=== PATIENT | male | born 1955 ===

== ENCOUNTER 2019-05-02 21:55 | Inpatient (IN) | payer OTHER, SELFPAY ==
--- NOTE | 2019-05-02 22:31 | DI.MRI.S_ITS ---
PROCEDURE: MR STROKE Pre- and post-contrast brain MRI, non-contrast brain MR angiogram, pre- and postcontrast neck MR angiogram INDICATIONS: TIA TECHNIQUE: Brain: Noncontrast axial T1 spin echo, axial T2 fast spin echo, sagittal and axial FLAIR, coronal T2 fast spin echo, axial gradient echo, axial diffusion and ADC through the brain. After the administration of contrast, axial 3D VIBE of the cranial vasculature and brain. Brain MRA: Non-contrast 3-D time of flight MR angiogram, with multiple rqrxszt-qolusionf-aopdyrsfbg (MIP) reformats performed. Neck MRA: Axial and sagittal TruFISP through the neck. Coronal dynamic MR angiogram during administration of contrast in the arterial and venous phases, with 3-dimenstional pjxelyw-fzfjyhhpa-qdzfgoyemx (MIP) reformats constructed from subtraction images. COMPARISON: None. FINDINGS: Image quality: Diagnostic, with note made of motion artifact. BRAIN: CSF spaces: Ventricles are normal in size and shape. Basal cisterns are patent. No extra-axial fluid collections. Brain: There is abnormal increased diffusion weighted signal seen involving the left lateral posterior aspect of the medulla, as on series 26 image 54. There is associated dark signal seen on the ADC map and there is developing T2-weighted signal seen at this site, as on series 22 image 5. No intracranial bleeds or mass effects. San-white matter interface is normal. Brain parenchymal volume loss is seen. Mild chronic small vessel ischemic change is seen. Brainstem appears normal. Normal intravascular flow voids are present. No abnormal intracranial enhancement. Skull and face: Calvarial marrow signal is normal. Orbits appear normal. Sinuses: Mild to moderate mucosal thickening is seen within the left maxillary sinus. Sinuses and mastoids are relatively clear. BRAIN MR ANGIOGRAM: Anterior circulation: Intracranial internal carotid arteries are normal in size and enhancement. There is a hypoplastic right A1 segment, with a corresponding robust left A1 segment. This is considered to be a normal developmental variant of the [place], of typically no clinical consequence. The flow within the paired anterior cerebral arteries is otherwise normal and symmetric. The flow within the middle cerebral arteries is normal and symmetric. The anterior communicating artery is seen. No stenoses, occlusions, or aneurysms. Posterior circulation: The visualized portions of the vertebral arteries demonstrate normal caliber, and join to form a normal appearing basilar artery. The flow within the posterior cerebral arteries is normal and symmetric. No stenoses, occlusions, or aneurysms. NECK MR ANGIOGRAM: Carotids: Great vessels demonstrate a conventional anatomy as they arise from the aortic arch. The origins of the common carotid arteries appear patent. The calibers and courses of both common carotid arteries are normal. The bifurcation regions appear normal bilaterally. The internal carotid arteries demonstrate normal course and caliber. Posterior circulation: The origins of the vertebral arteries appear patent. The left vertebral artery is dominant to the right. Both proximal vertebral arteries are tortuous, right more prominent than left. Miscellaneous: Subclavian arteries appear patent. Pre-contrast images through the neck show no soft tissue abnormalities. IMPRESSION: BRAIN MRI: Focal subacute infarction involving the left posterolateral medulla. No masses or abnormal enhancement can be seen. Mild brain parenchymal volume loss and chronic small vessel ischemic change can be seen. BRAIN MR ANGIOGRAM: No significant intracranial arterial abnormality is seen. Incidental note is made of a cap[place] band [place] developmental anomaly, with a hypoplastic right A1 segment. NECK MR ANGIOGRAM: Within the arteries of the neck, no hemodynamically significant stenosis can be seen. Dictated by: Daniel Pearce M.D. on 05/03/2019 at 11:07 Approved by: Daniel Pearce M.D. on 05/03/2019 at 11:14
[2019-05-02 23:44] VITALS: BP 176/88; PULSE 67; RESP 16; TEMP 36.1; O2SAT 96; BMI 31.6
[2019-05-03] VITALS (8 sets, daily range): BP systolic 150–180; BP diastolic 72–88; PULSE 64–75; RESP 16–18; TEMP 35.8–37.1; O2SAT 93–97
[2019-05-03] MEDS: ONDANSETRON 4 MG/2 ML INJ IV ×2 (00:13→08:34)
--- NOTE | 2019-05-03 01:08 | P.HP_ITS ---
History of Present Illness History of Present Illness Date Patient Seen: 05/03/19 Time Patient Seen: 00:30 Date of Onset of Symptoms: 05/02/19 Chief complaint: TIA Narrative: Mr. 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 with sudden onset headache and ataxia. The patient states his symptoms began abruptly at 7:30 p.m. and probably presented to the emergency department. Patient describes having an occipital headache and difficulty walking and bumping into things and loss of coordination, numbness and tingling in the left face and hand. Patient has had associated symptoms of nausea and vomiting but denies visual changes. He has no personal history of cardiovascular cerebrovascular disease however his father in his 60s from OR in his mother in her 80s from a stroke. Patient states he used to take aspirin 81 mg daily but none currently. The patient endorses that he does not regularly check his blood sugars and reports his most recent A1c was greater than 9. He has had a chronic diabetic ulcer on his right foot and has had toe amputated. He reports no other recent illness and has had no fevers or chills. Denies complaints of nasal congestion or sore throat. He has had no chest pain or palpitations or racing heartbeat. He denies shortness of breath cough or wheezing. He has had no abdominal pain and no nausea vomiting prior to tonight's episodes. He reports no changes in bowel bladder habits with his last bowel movement being yesterday. He reports nocturia 1-2 times nightly. At [facility] the patient was afebrile on arrival with a temperature 36.7? C heart rate of 95, hypertensive at 203/90 respirations of 14 saturating 97% on room air. A CT of the head is reported as unremarkable and a CT angiography shows a 30% occlusion of the right ICA and an abrupt termination of the left PICA. On laboratory analysis the patient has a white count of 10.0, hemoglobin of 18.9 and hematocrit of 52.1 with platelets of 281. His electrolytes are within normal limits and has a BUN of 16 and creatinine 1.1. His nonfasting glucose is 348. His liver functions are within normal range as lipase of 55 and albumin of 4.6. He has a PT of 11.1 and an INR of 1.0 on urinalysis he has glucosuria with no infection. In the ER the at [facility] patient received labetalol 20 mg IV for hypertension, aspirin 324 mg and Zofran [address] Wei the [facility] ER provider reports the patient's symptoms have resolved with no headache or ataxia and scores the patient had an NIH score of 0. He had contacted [facility] in neurology and spoke with Dr. Parker who recommended no acute interventions and follow complete stroke workup. The patient is transferred to [facility] as would be health does not currently have MRI services and will not for the next 5 days. Transfer is requested and accepted to the medicine service for further workup and evaluation for TIA. Patient History Medical History (Updated 05/03/19 @ 01:34 by ZENY Galvan) Diabetic neuropathy (Chronic) Diabetic ulcer of right foot (Chronic) Hypertension (Acute) Hypothyroidism (Acute) Surgical History (Updated 05/03/19 @ 01:34 by ZENY Galvan) History of amputation of toe (Acute) History of knee surgery (Acute) Family & Social History Family History (Updated 05/03/19 @ 01:35 by ZENY Galvan) Father Cardiovascular disease Mother Stroke Brother Diabetes mellitus Social History: household members children Prior Living Arrangements House Safety & Behavioral: Feels Safe in Current Yes Environment Been Physically Hurt or No Threatened By a Person Suicidal Ideation Description None Tobacco & Substance use: Smoking Status Smoker, status unknown alcohol intake never Comment: The patient is for 11 years and lives in a single family home with his adult children in [place]. He has a family history of his father having OR in his mother having stroke and a brother with diabetes. He has 4 children whom he describes as in good health. He endorses no family history of cancer. 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 Substance use: Patient denies use of recreational pharmaceuticals, herbal or cannabis products. Advanced directives: The patient has no formal advanced directive but in direct discussion states his wishes to be FULL CODE. He designates his eldest son Ignacio to be his surrogate decision maker. Meds Home Medications and Allergies Home Medications Medication Instructions Recorded Confirmed Type insulin glargine [Basaglar KwikPen 62 unit SUBCUT DAILY 05/03/19 05/03/19 History U-100 Insulin] insulin lispro [Humalog KwikPen See Rx Instructions .ROUTE .COMPLEX 05/03/19 05/03/19 History Insulin] levothyroxine 75 mcg PO DAILY 05/03/19 05/03/19 History sitagliptin-metformin [Janumet] 1 tab PO BID 05/03/19 05/03/19 History Allergies Allergy/AdvReac Type Severity Reaction Status Date / Time No Known Drug Allergies Allergy Verified 05/03/19 01:04 Review of Systems Review of Systems ROS: Yes All systems reviewed with the patient and are negative except as otherwise documented Exam Vital Signs (past 8 hours): - 05/02/19 23:44 Temperature 97.0 F L Pulse Rate 67 Respiratory Rate 16 Blood Pressure 176/88 H Pulse Oximetry 96 Oxygen Flow Rate 0 Narrative Exam Narrative: GENERAL APPEARANCE: well developed, right handed overweight male ill-appearing and nauseated. HEENT: Symmetrical facies, slight anisocoria R>L, scleras anicteric and conjunctiva clear, EOMs intact with bilateral nystagmus, no sinus tenderness to percussion, no rhinorrhea, mucous membranes are moist and pink without lesions or exudate. NECK/THYROID: neck supple, no JVD, no carotid bruit, no thyromegaly, trachea midline. LYMPH NODES: no cervical or supraclavicular lymphadenopathy. SKIN: [place], warm and dry, ulceration right foot dressed with bandage. HEART: regular rate and rhythm, S1-S2, no murmur, no rubs or gallops, brisk c apillary refill, no edema LUNGS: clear to auscultation bilaterally, no coarseness crackles or wheezing, no cough present CHEST: Symmetrical movement, no accessory muscle use, good tidal volume. ABDOMEN: Soft, dull to percussion, no abdominal tenderness, no guarding or peritoneal signs, no organomegaly, no flank or suprapubic tenderness, active bowel tones. BACK: Normal curvature, nontender to palpation, no CVA tenderness on percussion EXTREMITIES: moves all extremities, strength is 5/5 and symmetrical, no deformities or joint effusions. NEUROLOGIC: AAO x4, nausea with movement, NIH score is 4, diminished sensation left face left arm and left leg, bilateral lower extremity neuropathy, hearing is assessed as normal bilateral PSYCH: Alert and responsive, anxious appearing, short responses to questions, cooperative with stable behavior. Assessment & Plan Assessment & Plan narrative: This is a 64-year-old right-handed male patient who is transferred to [facility] from [facility] for further evaluation of TIA with the sending facility without MRI capability. Per report from the sending provider patient had an NIH score of 0. Upon arrival transfer documentation is reviewed and the patient has undergone CTA and has abrupt termination of the left PICA and presents Upon arrival and NIH score is 5. We contacted [facility] in spoke with Dr. Parker from Dr. Wei had previously communicated with. Dr. Parker confirmed no intervention is available and recommended proceeding with standard workup as previously described. 1. Acute cerebellar CVA, occluded left PICA, present on admission, active. -patient with abrupt onset of headache with ataxia at 7:30 p.m.. Patient with associated symptoms of numbness and tingling to the left face left arm and left leg, ataxia with impaired movement left hand and nausea and vomiting. Headache has resolved and no complaints of neck pain. -head CT is unremarkable however CTA identifies abrupt termination of the left PICA. -ordered ondansetron 4 mg every 6 hours as needed without relief of nausea. Ordered prochlorpromazine 10 mg IV every 6 hours as needed for nausea. -ordered labetalol 10 mg IV as needed 1st SBP greater than 220 or DBP greater than 120 allowing for permissive hypertension. -aspirin 81 mg daily. -ordered lipid panel, atorvastatin 40 mg daily. -MRI stroke protocol in the morning. -echocardiogram in the morning. -PT, OT and speech therapy to consult of evaluate and treat. 2. Essential hypertension, chronic, active -patient carries a history of hypertension but is on no current medications. -patient is hypertensive and received labetalol [address] [facility]. Blood pressure on arrival to [facility] is 176/88. -ordered labetalol 10 mg IV as needed 1st SBP greater than 220 or DBP greater than 120 allowing for permissive hypertension. 3. Diabetes type 2, insulin dependent, uncontrolled with neuropathy, present on admission, active. -patient admits to poorly controlled diabetes, not checking blood sugars regularly and reports bilateral lower extremity neuropathy with last A1c greater than 9. -blood sugar on admission labs at [facility] was 348, fingerstick blood sugar on arrival to [facility] is 295. -Accu-Cheks every 6 hours while NPO then will be AC and HS. -patient typically takes Basaglar 62 units daily. Ordered Lantus 35 mg twice daily. -patient reports using parental insulin 25-35 units with meals. Patient will be presently NPO pending speech evaluation. -ordered correctional insulin medium scale every 6 hours. -patient routinely takes Basaglar 62 units daily. 4. Acquired Hypothyroidism, chronic, stable. -continue patient's home regimen of levothyroxine 75 mcg daily. -will check TSH with reflex to T4. VTE prophylaxis: SCDs and Lovenox IV fluid: Normal saline 100 cc/hour. Diet: NPO pending speech therapy evaluation. Code status: FULL CODE The patient is admitted to the hospital for further evaluation workup for cerebellar stroke. The patient is admitted as observation status with expected length of stay to be less than 2 midnights. Scores GCS [place] coma scale eye opening: Spontaneous [place] coma scale verbal response: Orientated [place] coma scale motor response: [place]bey commands [place] coma scale total score: 15 NIHSS Level of Conciousness: Alert, keenly responsive Ask month/age: Answers both questions correctly. Open/close eyes, close hand: Performs both tasks correctly Best gaze horizontal: Normal Visual lowe: No visual loss Facial palsy: Minor paralysis, flattened nasolabial fold, asymmetry on smiling Left arm drift: No drift for full 10 sec Right arm drift: No drift for full 10 sec Left leg drift: No drift for full 5 sec Right leg drift: No drift for full 5 sec Limb ataxia: Present in one limb Sensory on face/arms/legs: Mild to moderate sensory loss, can tell touch Best language: No aphasia, normal Dysarthria: Mild to mod,some slurring Extinction or inattention: Visual, tactile, auditory, spacial or personal inattention to stimuli Total NIH Stroke scale score: 5 Quality VTE Deep Vein Thrombosis/Pulmonary Embolism Present on Admission: No
[2019-05-03] MEDS: PROCHLORPERAZINE 10 MG/2 ML VIAL IV ×2 (01:57→10:06)
[2019-05-03] MEDS: INSULIN ASPART 100 UNIT/ML INSULN PEN SUBCUT ×4 (02:00→17:50)
[2019-05-03] MEDS: SODIUM CHLORIDE 0.9% 1,000 ML 100 ML IV (03:14)
[2019-05-03] MEDS: PANTOPRAZOLE 40 MG VIAL IV ×2 (03:16→09:19)
[2019-05-03 05:57] LABS: Alanine Aminotransferase 18 IU/L (<50); Albumin 4.3 g/dL (3.5-5.0); Albumin Globulin Ratio 1.4 (1.0-2.8); Alkaline Phosphatase 91 U/L (38-126); Aspartate Aminotransferase 20 IU/L (17-59); BUN Creatinine Ratio 15.3 (6-22); Bilirubin Total 0.7 mg/dL (0.2-1.3); Blood Urea Nitrogen 15 mg/dL (9-20); Calcium 9.2 mg/dL (8.4-10.2); Carbon Dioxide 27 mmol/L (22-32); Chloride 101 mmol/L (98-107); Estimated Glomerular Filt Rate > 60.0 mL/min (>60); Glucose 330 mg/dL (80-110); HEMOLYSIS < 15 (0-50); Potassium 4.4 mmol/L (3.4-5.1); Sodium 136 mmol/L (137-145); Total Protein 7.3 g/dL (6.3-8.2)
[2019-05-03 05:59] LABS: Hemoglobin A1C% w Est Avg Glu 9.7 % (4.0-6.0)
[2019-05-03 06:01] LABS: Add Manual Diff / Slide Review NO; Basophils Absolute Auto 0 /uL (0-100); Basophils Percent Auto 0.2 % (0-2); Eosinophils Absolute Auto 0 /uL (0-450); Eosinophils Percent Auto 0.1 % (2-4); Hematocrit 50.7 % (41-53); Hemoglobin 17.5 g/dL (13.5-17.5); Lymphocytes Absolute Auto 1300 /uL (1100-4500); Mean Corpuscular HGB Conc 34.5 % (30-36); Mean Corpuscular Hemoglobin 29.6 PG (26-34); Mean Corpuscular Volume 85.6 fL (80-100); Monocytes Absolute Auto 700 /uL (0-900); Monocytes Percent Auto 5.4 % (3-14); Neutrophils Absolute Auto 10100 /uL (1500-7000); Neutrophils Percent Auto 83.3 % (50-75); Platelet Count 261 X10^3/uL (150-400); Red Blood Cell Count 5.92 X10^6/uL (4.5-5.9); Red Cell Distribution Width 14.2 % (11.6-14.8); White Blood Cell Count 12.1 X10^3/uL (4.5-11.0)
[2019-05-03 06:22] LABS: Cholesterol 175 mg/dL (140-199); HDL Cholesterol 40 mg/dL (40-60); LDL Cholesterol Calculated 117 mg/dL (<100); Triglycerides 92 mg/dL (35-150)
[2019-05-03 07:08] LABS: Magnesium 1.7 mg/dL (1.6-2.3)
--- NOTE | 2019-05-03 08:58 | CM.DANOTE ---
Addendum entered by Mendy Montoya R.N. 05/03/19 10:09: Discussed patient during rounds. He was sleeping. When MRI is complete, will be sent over to neurologist at [facility]. Patient is having balance issues and nausea. Will continue to follow closely. Original Note: DCP: Case reviewed, EMR reviewed. Was unable to interview patient, as he was having emesis, but reviewed chart and recent ER note. DCP assessment completed with information currently available. Patient is a 64 year old male who admitted yesterday evening to the care of the hospitalist team. PCP: Dr. Danielson. Payer: Hitesh WOLF. Patient came to the hospital after initial evaluation at [facility]. They did not have MRI capabilities, so he was sent here. Patient had been seen for occipital headaches, weakness, and unsteadines. Patient was evaluated for CVA. Patient has history of diabetes type 2, and poorly controlled. He also had an amputated toe According to notes, patient lives with his 4 children, and has a son, Ignacio Hall, who is the decision maker. 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 Patient is here for possible CVA' and will be having an MRI. MD at [facility] is also involved, and will be looking at MRI. It is uncertain if patient will be transferred out to higher level facility. Patient does have P.T/O.T. orders. P: DCP to follow and be available for any resources needed. If he does not get transferred out, he may be eligable for inpatient rehab at a higher level, such as [facility]. Will see how he does here at the hospital, and when he is stable enough to work with P.T. Mendy Montoya RN/Councilor
[2019-05-03] MEDS: ASPIRIN EC 81 MG TABLET PO (09:19)
[2019-05-03] MEDS: INSULIN GLARGINE 100 UNIT/ML 3ML PEN 20 UNIT SUBCUT (10:06)
--- NOTE | 2019-05-03 11:30 | PT-IP ANOTE ---
900am: checked on pt this morning and nurse stated that pt is not ready for PT this morning with c/o nausea and (+) emesis. nurse if going to give pt medication and PT to check back. Checked on pt again at 1125am. pt. just came back from MRI and speech has to see pt first and pt is going for an echo afterwards. will check again in pm.
--- NOTE | 2019-05-03 11:35 | DI.ECHO.S_ITS ---
Echocardiogram Report + + :Name: NICKI VALDEZ Study Date: 05/03/2019 Height: 72 in : :[facility] Weight: 233 lb : : Gender: Male BSA: 2.3 m2 : :: 1955 Age: 64 yrs BP: 176/88 mmHg: :Reason For Study: TIA/ HYPERTENSION : :Ordering Physician: [facility] : :Hospitalist Performed By: Mihaela Page : :Referring: AJAY CARRILLO : + + Interpretation Summary The left ventricle is normal in size, wall thickness, and systolic function without any focal wall motion abnormalities. The ejection fraction is estimated to be 60-65%. Diastolic parameters suggest a relaxation abnormality of the left ventricle, consistent with probable normal filling pressures. The right ventricle is normal in size and function. Pulmonary artery pressures cannot be estimated because of the lack of a measurable TR jet velocity. The left atrium is severely dilated. The right atrium is mildly dilated. There was a small amount of bubbles after 10 cardiac cycles that appear in the left atrium. This would suggest an extracardiac shunt such as a pulmonary AV malformation. Consider a CT chest with IV contrast to further investigate. There is discrete nodular thickening of the right coronary cusp. There is mild to moderate aortic regurgitation. There is no other significant valvular heart disease. The aortic root is mildly dilated. The ascending aorta is mild-moderately enlarged. Procedure: A two-dimensional transthoracic echocardiogram with color flow and Doppler was performed. The study quality was technically adequate. There is no prior echocardiogram noted for this patient. A saline contrast injection was performed to assess for cardiac shunting. The heart rate ranged between 63-82 bpm during the study. The patient had frequent PVCs during the exam. Left Ventricle: The left ventricle is normal in size, wall thickness, and systolic function without any focal wall motion abnormalities. The ejection fraction is estimated to be 60-65%. Diastolic parameters suggest a relaxation abnormality of the left ventricle, consistent with probable normal filling pressures. Right Ventricle: The right ventricle is normal in size and function. Atria: The left atrium is severely dilated. The right atrium is mildly dilated. There was a small amount of bubbles after 10 cardiac cycles that appear in the left atrium. This would suggest an extracardiac shunt such as a pulmonary AV malformation. Consider a CT chest with IV contrast to further investigate. Mitral Valve: The mitral valve is normal in structure and function. There is no mitral regurgitation noted. Aortic Valve: The aortic valve is trileaflet. There is discrete nodular thickening of the right coronary cusp. The aortic valve opens well. There is mild to moderate aortic regurgitation. Tricuspid Valve: The tricuspid valve is normal in structure and function. There is a trace or physiologic amount of tricuspid regurgitation. Pulmonary artery pressures cannot be estimated because of the lack of a measurable TR jet velocity. Pulmonic Valve: The pulmonic valve is not well seen, but is grossly normal. There is a trace or physiologic amount of pulmonic regurgitation. There is no other significant valvular heart disease. Great Vessels: The aortic root is mildly dilated. The ascending aorta is mild-moderately enlarged. The pulmonary artery is normal size. The IVC is of normal diameter and collapses less than 50% with a sniff. This suggests a right atrial pressure of 8 mm Hg. Pericardium/ Pleura There is no pericardial effusion. Can not rule out possible left sided pleural effusion. MMode/2D Measurements & Calculations LVIDd: 5.7 cm Ao root diam: 4.4 cm LVIDs: 3.8 cm asc Aorta Diam: 4.3 cm FS: 33.3 % EPSS: 0.18 cm IVSd: 0.96 cm LVPWd: 0.68 cm LV brown. diameter/BSA (cm/m^2): 2.5 LV sys. diameter/BSA (cm/m^2): 1.7 LA A2 area: 30.4 cm2 RA long axis: 6.4 cm LA A4 area: 26.3 cm2 RA area: 24.3 cm2 LA length (vol): 6.1 cm RA vol: 78.5 ml LA vol: 110.9 ml RA : 34.6 ml/m2 LA vol index: 48.8 ml/m2 IVC diam: 2.0 cm RVD1 (basal): 4.7 cm RVD2 (mid): 3.8 cm Doppler Measurements & Calculations Ao V2 max: 201.1 cm/sec LVOT Max Ochoa: 81.8 cm/sec Ao V2 mean: 126.7 cm/sec LV V1 max P.7 mmHg Ao max P.2 mmHg LV V1 VTI: 17.7 cm Ao mean P.6 mmHg sev ratio: 0.40 Ao V2 VTI: 44.3 cm AI P1/2t: 317.5 msec AI dec slope: 411.2 cm/sec2 MV E max ochoa: 68.1 cm/sec PA V2 max: 66.5 cm/sec MV A max ochoa: 78.6 cm/sec PA V2 mean: 45.0 cm/sec MV E/A: 0.87 PA mean P.89 mmHg Med Peak E' Ochoa: 6.0 cm/sec PA Accel Time: 0.08 sec E/E' med: 11.3 Lat Peak E' Ochoa: 7.8 cm/sec E/E' lat: 8.7 E/e' average: 10.0 MV P1/2t: 52.4 msec MV /2t max ochoa: 68.1 cm/sec MVA(2t): 4.2 cm2 _ Reading Physician:02:24 PM
--- NOTE | 2019-05-03 12:12 | ST.IPCSEOM ---
Visit Care Team Role Provider Type Ramesh Danielson MD Family Provider Physician Primary Care Provider Specialty: Family Practice Address: [address], [address], [place], [address] Email: ZENY Galvan Admit Provider Physician Attending Provider Referring Provider Specialty: Internal Medicine Address: [address] [place] [address], [id number] Email: [email or web address] Past Medical History (Last Updated 05/03/19 @ 01:34 by ZENY Galvan) Diabetic neuropathy (Chronic Medical) Diabetic ulcer of right foot (Chronic Medical) Hypertension (Acute Medical) Hypothyroidism (Acute Medical) Speech-Language Pathology 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 Harpreet Panda is a 64-year-old right-handed male with a history significant for poorly controlled diabetes type 2 with neuropathy, hypertension, hypothyroidism and polycythemia who presents to the emergency department at [facility] in [facility] with sudden onset headache and ataxia. The patient states his symptoms began abruptly at 7:30 p.m. and probably presented to the emergency department. Patient describes having an occipital headache and difficulty walking and bumping into things and loss of coordination, numbness and tingling in the left face and hand. Patient has had associated symptoms of nausea and vomiting but denies visual changes. He has no personal history of cardiovascular cerebrovascular disease however his father in his 60s from [place] in his mother in her 80s from a stroke. Subjective Observations Pt was in his bed in room. He had just returned from MRI. Pt did not want to eat anything. After explaining the reason for the swallow evaluation, he agreed to proceed. Evaluation Liquids Trialed Ice Chips,Thin Solids Trialed Mechanical Soft Administration Type Tea Spoon,Cup Single Sip,Cup Consecutive Sips,Self-Feeding Oral Impairment WFL Oral Strategies Upright at 90 degrees, Controlled Bite/Sip Size Oral Phase Comments OM examination indicated structures to be WFL for form and function. Pt had a partial denture in place for missing lower teeth. ROM and strength lingually WNL, strength and ROM for lips/ cheeks WNL. Pt c/o numbness on the outside of his cheek. He reported no numbness inside his mouth. Pharyngeal Impairment WFL Pharyngeal Strategies Sitting Upright (90 deg),Small Bites and Sips Pharyngeal Phase Comments Hyolaryngeal elevation was adequate per palpation. His swallow response appeared to be prompt. No cough, choke, or wet voicing was observed. Pt was able to feed himself, and safely tolerated consecutive swallows of thin liquids. No oral residue observed following trial of mechanical soft foods. Findings Dysphagia Type No oral/pharyngeal dysphagia observed Impressions Pt's swallow appears to be WFL. The results obtained no not exclude the possibility of silent aspiration. The pt did not appear to demonstrates signs of silent aspiration ( eyes watering, difficulty with breathing, etc). Thin liquids and mechanial soft are recommended with diet advance a pt desires/tolerates. Diet Recommendations Liquids Order Thin Diet Order Mechanical Soft Medication Recommendations As Tolerated Comments Advance diet as indicated Aspiration Precautions Recommended Precautions Upright at 90 Degrees,Small Bites/Sips Treatment Plan Placement Recommendations after Custodial Facility, Discharge Inpatient Rehab Facility,Home with Home Health Therapy Recommendations ST will f/u as indicated if pt condition changes SPEECH INSTRUCTOR Follow Up as indicated Referrals/Other Recommended Referrals Primary Care Physician
--- NOTE | 2019-05-03 12:50 | OT.IP.TRT ---
Occupational Therapy Treatment Note M3 OT- IP Subjective and Pain Start: 05/03/19 12:49 Freq: Status: Active Protocol: Document 05/03/19 12:49 CGR (Rec: 05/03/19 12:50 CGR [id number]) OT- Subjective Occupational Therapy Visit Type Type Administrative Note Notes Attempted to see pt multiple times today. Pt off the floor for MRI, getting ECHO, last attempt pt is actively vomiting and requests to postpone therapy. Will hold and continue to follow.
[2019-05-03] MEDS: METOCLOPRAMIDE 10 MG/2 ML INJ IV (13:00)
--- NOTE | 2019-05-03 13:01 | P.PN_ITS ---
Subjective Subjective Date Patient Seen: 05/03/19 Time Patient Seen: 13:02 Interval history: Patient was seen and evaluated today, agree with the previously documented assessment and plan with updates as noted below. Mr. 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 He was transferred here for MRI evaluation as this was unavailable at [facility]. When patient arrived he had a Stroke Scale of 5. MRI today showed an acute infarct of his left posterior lateral medulla. Exam Vital Signs (past 8 hours): - 05/03/19 05:43 05/03/19 07:35 05/03/19 12:56 Temperature 97.2 F L 96.4 F L 97.7 F Pulse Rate 64 68 75 Respiratory Rate 18 16 18 Blood Pressure 170/85 H 180/78 H 173/80 H Pulse Oximetry 97 94 93 Oxygen Flow Rate 0 Objective Labs Result Diagrams: 05/03/19 05:20 05/03/19 05:20 Labs: Laboratory Results - last 24 hr 05/03/19 05/03/19 05/03/19 05:20 05:20 05:20 WBC 12.1 H RBC 5.92 H Hgb 17.5 Hct 50.7 MCV 85.6 MCH 29.6 MCHC 34.5 RDW 14.2 Plt Count 261 Neut % (Auto) 83.3 H Lymph % (Auto) 11.0 L Mitchell % (Auto) 5.4 Eos % (Auto) 0.1 L Baso % (Auto) 0.2 Neut # (Auto) 72947 H Lymph # (Auto) 1300 Mitchell # (Auto) 700 Eos # (Auto) 0 Baso # (Auto) 0 Sodium 136 L Potassium 4.4 Chloride 101 Carbon Dioxide 27 BUN 15 Creatinine 0.98 Estimated GFR > 60.0 BUN/Creatinine Ratio 15.3 Glucose 330 H Hemoglobin A1c 9.7 H Calcium 9.2 Magnesium Total Bilirubin 0.7 AST 20 ALT 18 Alkaline Phosphatase 91 Total Protein 7.3 Albumin 4.3 Globulin 3.0 Albumin/Globulin Ratio 1.4 Triglycerides 92 Cholesterol 175 LDL Cholesterol, Calc 117 H HDL Cholesterol 40 TSH 05/03/19 05/03/19 05:20 05:20 WBC RBC Hgb Hct MCV MCH MCHC RDW Plt Count Neut % (Auto) Lymph % (Auto) Mitchell % (Auto) Eos % (Auto) Baso % (Auto) Neut # (Auto) Lymph # (Auto) Mitchell # (Auto) Eos # (Auto) Baso # (Auto) Sodium Potassium Chloride Carbon Dioxide BUN Creatinine Estimated GFR BUN/Creatinine Ratio Glucose Hemoglobin A1c Calcium Magnesium 1.7 Total Bilirubin AST ALT Alkaline Phosphatase Total Protein Albumin Globulin Albumin/Globulin Ratio Triglycerides Cholesterol LDL Cholesterol, Calc HDL Cholesterol TSH 1.20 Assessment & Plan Assessment & Plan narrative: This is a 64-year-old right-handed male patient who is transferred to [facility] from [facility] for further evaluation of TIA with the sending facility without MRI capability. Per report from the sending provider patient had an NIH score of 0. Upon arrival transfer documentation is reviewed and the patient has undergone CTA and has abrupt termination of the left PICA and presents Upon arrival and NIH score was 5. [facility] was consulted on arrival and Dr. Parker from Dr. Wei was communicated with. Dr. Parker confirmed no intervention is available and recommended proceeding with standard workup as previously described. 1. Acute CVA, L PICA infarct, present on admission, active. -patient with abrupt onset of headache with ataxia at 7:30 p.m.. Patient with associated symptoms of numbness and tingling to the left face left arm and left leg, ataxia with impaired movement left hand and nausea and vomiting. Headache has resolved and no complaints of neck pain. -head CT is unremarkable however CTA identifies abrupt termination of the left PICA. 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 Symptoms consistent with Wallenberg syndrome. -ordered ondansetron 4 mg every 6 hours as needed without relief of nausea. Ordered prochlorpromazine 10 mg IV every 6 hours as needed for nausea, along with zofran and reglan. -ordered labetalol 10 mg IV as needed 1st SBP greater than 220 or DBP greater than 120 allowing for permissive hypertension. -aspirin 81 mg daily. -Lipid panel LDL of 117, HDL 40, TG 92, continue atorvastatin 40 mg daily. -MRI stroke protocol as noted above. -echocardiogram pending -PT, OT and speech therapy evaluate and treat. Cleared by speech therapy today. -will follow up with [facility] after they have had time to receive MRI images, likely no interventions necessary based on MRI result. -patient's predominant symptoms of nausea will be treated as noted above, but can last months. 2. Essential hypertension, chronic, active -patient carries a history of hypertension but is on no current medications. -patient is hypertensive and received labetalol 20 mg at [facility]. Blood pressure on arrival to [facility] is 176/88. -ordered labetalol 10 mg IV as needed 1st SBP greater than 220 or DBP greater than 120 allowing for permissive hypertension. 3. Diabetes type 2, insulin dependent, uncontrolled with neuropathy, present on admission, active. -patient admits to poorly controlled diabetes, not checking blood sugars regularly and reports bilateral lower extremity neuropathy with last A1c greater than 9. Current A1c 9.7%. -blood sugar on admission labs at [facility] was 348, fingerstick blood sugar on arrival to [place] is 295. -Accu-Cheks every 6 hours while NPO then will be AC and HS. -patient typically takes Basaglar 62 units daily. Ordered Lantus 35 mg twice daily. -patient reports using parental insulin 25-35 units with meals. Patient will be presently NPO pending speech evaluation. -ordered correctional insulin medium scale every 6 hours. -patient routinely takes Basaglar 62 units daily. 4. Acquired Hypothyroidism, chronic, stable. -continue patient's home regimen of levothyroxine 75 mcg daily. -TSH unremarkable. VTE prophylaxis: SCDs and Lovenox IV fluid: Normal saline 75 cc/hour. Diet: Passed speech eval, to resume diet at dinner. Code status: FULL CODE The patient is admitted to the hospital for further evaluation workup. Quality VTE Deep Vein Thrombosis/Pulmonary Embolism Present on Admission: No
--- NOTE | 2019-05-03 14:15 | PT.IIE ---
Surgical History (Last Updated 05/03/19 @ 01:34 by ZENY Galvan) History of amputation of toe (Acute) History of knee surgery (Acute) Medical History (Last Updated 05/03/19 @ 01:34 by ZENY Galvan) Diabetic neuropathy (Chronic) Diabetic ulcer of right foot (Chronic) Hypertension (Acute) Hypothyroidism (Acute) Physical Therapy Inpatient Evaluation/Re-Eval M1 PT/OT-IP Prior Functional Status Start: 05/03/19 14:59 Freq: NEEDED Status: Active Protocol: Document 05/03/19 14:15 AB (Rec: 05/03/19 15:23 AB [id number]) Medical Review Prior Functional Status Medical History Reviewed Yes Communication able to make needs known Mobility and Gait pt stated that he was independent with all mobilities and ambulation without AD Social History Household Members children Living Arrangements House Number of Floors (Floors) One Floor Number of Stairs To Enter/Railing? 1 step to enter Home Environment High Toilet,Walk in Shower, Built-In Shower Seat Home Equipment Grab Bars In Shower M2 PT-IP Current Condition Start: 05/03/19 14:59 Freq: NEEDED Status: Active Protocol: Document 05/03/19 14:15 AB (Rec: 05/03/19 15:23 AB [id number]) Physical Therapy Current Condition Current Condition Evaluation Date 05/03/19 Treatment Diagnosis cerebellar CVA; difficulty in walking Onset Date 05/02/2019 Precautions Other Precautions falls M3 PT-IP Subjective Start: 05/03/19 14:59 Freq: NEEDED Status: Active Protocol: Document 05/03/19 14:15 AB (Rec: 05/03/19 15:23 AB [id number]) Subjective Physical Therapy Visit Type Type Initial Evaluation Visit Start Time 14:15 Visit Stop Time 14:38 Total Visit Minutes 23 Number of CONTRACT CLERK Visits 0 Physical Therapy Visit Comments Patient Comments c/o dizziness M4 PT-IP Mobility and Gait Start: 05/03/19 14:59 Freq: NEEDED Status: Active Protocol: Document 05/03/19 14:15 AB (Rec: 05/03/19 15:23 AB [id number]) PT-Bed Mobility Assessment Supine to Sit Supine to Sit Contact Guard Assistance Sit to Supine Sit to Supine Contact Guard Assistance PT-Transfer Assessment Sit to and From Stand Sit to and from Stand Moderate Assistance,Maximum Assistance,1 Person Assistance ,Use of Upper Extremities Comments Mobility Comments pt supne in bed. c/o dizziness. completed supine to sit CGA and cues. pt required min A to maintain sitting balance on EOB with increase lateral trunk leaning and LOB on L side. asked pt if he is aware that he is leaning more to the left and stated a little bit but did not correct position and required mod A to reposition trunk back to midline. pt completed sit to stand mod to max A and max cues. NAC present for safety. pt continues to have increase L sided trunk leaning. instructed to take steps towards HOB and completed max A x 1-2 and max cues. pt unable to correct posture without AD and requires max A and max cues. pt stated that he is starting to be nauseated and requested to sit back and lay back in bed. completed sit to supine CGA and cues. positioned in bed. call light and table placed within reach . Pt continues to have increase L sided trunk and head turning to the L even in supine. educated on repositioning. Gait Assessment Gait Gait Assistance Required: Maximum Assistance,1 Person Assist,2 Person Assist Distance (Feet) 3 Able to Maintain Weight Bearing Status Yes During Gait Assistive Devices Assistive Device Gait Belt,Front Wheeled Walker Orthotic/Prosthetic Devices or Brace: No Gait Deviations General Gait Pattern Antalgic,Decreased Stride Length,Decreased Feet Clearance,Lateral Trunk Lean, Step-to Gait Factors Limiting Gait Function Factors Limiting Gait Function Decreased Activity Tolerance, Incoordination,Poor Balance, Poor Safety Awareness PT-Balance Assessment Sitting Balance and Reactions Static Sitting Balance Ability Poor Dynamic Sitting Balance Ability Poor Standing Balance and Reactions Static Standing Balance Ability Poor Dynamic Standing Balance Ability Poor Device Used FWW M5 PT-IP Objective Assessments Start: 05/03/19 14:59 Freq: NEEDED Status: Active Protocol: Document 05/03/19 14:15 AB (Rec: 05/03/19 15:23 AB [id number]) Orientation Orientation/Cognition Level of Alertness Alert Orientation Name Safety Awareness Decreased Safety Awareness Gross Range of Motion Lower Extremity ROM Assessment Within Functional Limits Strength Lower Extremity Strength Assessment Within Functional Limits M6 PT-IP Treatment Start: 05/03/19 14:59 Freq: NEEDED Status: Active Protocol: Document 05/03/19 14:15 AB (Rec: 05/03/19 15:23 AB [id number]) Physical Therapy Treatment Education Education Provided Safety M7 PT-IP Assessment and Plan Start: 05/03/19 14:59 Freq: NEEDED Status: Active Protocol: Document 05/03/19 14:15 AB (Rec: 05/03/19 15:23 AB [id number]) PT Summary Assessment and Plan Potential Rehabilitation Potential Fair Status of Condition at Evaluation Evolving Summary Impairments Pain,ROM,Strength,Balance, Coordination,Sensation,Tone, Cognition,Bed Mobility, Transfers,Gait,Activity Tolerance Assessment Summary pt with decrease midline orientation and c/o dizziness/ nausea affecting mobility. pt will require acute rehab vs snf rehab to improve functional mobility. Currently, the pt requires 2 person assist with mobility with LOB to the L and max cues . pt is to be seen once a day for PT at this time but will increase frequency when appropriate/when pt can tolerate more activity but at this time unable to tolerate much activity due to c/o nausea with (+) emesis and dizziness . Goals Bed Mobility Goal Standby Assistance Transfer Goal Contact Guard Assistance,Front Wheeled Walker Gait Goal Minimal Assistance,Front Wheel Walker Gait Distance 100 Other Goals up/down 1 step min A Days to Meet Goals 10 Frequency of Treatment Frequency Of Treatment Once a Day Treatment Plan Physical Therapy Treatment Plan Bed Mobility Training,Transfer Training,Gait Training, Therapeutic Exercise,Balance Retraining,Discharge Planning, Neuromuscular Re-ed, Coordination Retraining Recommendations To Nursing Amount of Assist Needed 2 Person Assist Discharge Recommendations PT Discharge Recommendations SNF Rehab,Acute Rehab
--- NOTE | 2019-05-03 15:37 | PC.NURSE ---
Shift Summary: Patient alert and oriented, pleasant, and answers questions appropriately. Reports continuous dizziness and nausea without great relief from nausea medications as ordered prn. patient has episodes of retching and some emesis when moving. MRI completed today, and Dr. Mustafa in to discuss results with patient. Patient was able to work with P.T. Using urinal independently, and able to move in bed himself. Seen by ST and able to advance diet, but patient declines anything other than sips of water at this time due to nausea. Voiding without difficulty. Denies pain. Call light and urinal within reach.
[2019-05-03] MEDS: SODIUM CHLORIDE 0.9% 1,000 ML 75 ML IV (16:16)
--- NOTE | 2019-05-03 18:19 | PC.NURSE ---
wound care 1814 dressing to right foot cleansed with saline and allevyn dressing applied. notified that pt states he's been taking Keflex 4x/day.
[2019-05-03] MEDS: ATORVASTATIN 20 MG TABLET 40 MG PO (21:00)
[2019-05-03] MEDS: INSULIN GLARGINE 100 UNIT/ML 3ML PEN 35 UNIT SUBCUT (21:00)
[2019-05-03] MEDS: cephALEXin 250 MG CAPSULE 500 MG PO (21:02)
[2019-05-04] VITALS (11 sets, daily range): BP systolic 140–172; BP diastolic 64–94; PULSE 63–85; RESP 16–18; TEMP 35.9–37; O2SAT 93–96
[2019-05-04] MEDS: INSULIN ASPART 100 UNIT/ML INSULN PEN SUBCUT ×5 (00:28→20:48)
[2019-05-04 06:02] LABS: Add Manual Diff / Slide Review NO; Basophils Absolute Auto 0 /uL (0-100); Basophils Percent Auto 0.4 % (0-2); Eosinophils Absolute Auto 200 /uL (0-450); Eosinophils Percent Auto 1.2 % (2-4); Hematocrit 47.8 % (41-53); Hemoglobin 16.7 g/dL (13.5-17.5); Lymphocytes Absolute Auto 1800 /uL (1100-4500); Lymphocytes Percent Auto 13.8 % (25-40); Mean Corpuscular HGB Conc 34.9 % (30-36); Mean Corpuscular Hemoglobin 29.8 PG (26-34); Mean Corpuscular Volume 85.3 fL (80-100); Monocytes Absolute Auto 1000 /uL (0-900); Monocytes Percent Auto 7.8 % (3-14); Neutrophils Absolute Auto 10000 /uL (1500-7000); Neutrophils Percent Auto 76.8 % (50-75); Platelet Count 246 X10^3/uL (150-400); Red Blood Cell Count 5.61 X10^6/uL (4.5-5.9); Red Cell Distribution Width 14.2 % (11.6-14.8)
[2019-05-04 06:10] LABS: BUN Creatinine Ratio 15.8 (6-22); Blood Urea Nitrogen 15 mg/dL (9-20); Calcium 8.9 mg/dL (8.4-10.2); Carbon Dioxide 29 mmol/L (22-32); Chloride 103 mmol/L (98-107); Estimated Glomerular Filt Rate > 60.0 mL/min (>60); Glucose 213 mg/dL (80-110); HEMOLYSIS < 15 (0-50); Potassium 4.3 mmol/L (3.4-5.1); Sodium 137 mmol/L (137-145)
[2019-05-04] MEDS: SODIUM CHLORIDE 0.9% 1,000 ML 75 ML IV ×2 (06:23→20:11)
--- NOTE | 2019-05-04 09:02 | CM.DPC ---
Addendum entered by Mendy Montoya R.N. 05/04/19 11:25: Layla from [facility] called back. She was inquiring if patient had worked with O.T/S.T. Let her know that patient has. She asked to have these notes faxed over as well, as well as latest prog note. Faxed over yesterday's prog note, as well as speech and occupational therapy notes as well. Addendum entered by Mendy Montoya R.N. 05/04/19 10:51: Spoke to Layla at [facility] and stated that she will review referral. Since insurance is not opened today, she will call them in the am to work on getting authorization. Original Note: DCP Cont: Met with patient this morning. Noted in P.T. notes that they are recommending skilled rehab, or inpatient rehab. Patient was sitting up in his bed, he is alert and oriented. Discussed fci, patient stated, it's pretty scary with the Page Virus going on. Mentioned higher level rehab, such as [facility], and patient stated, that would be ok. Confirmed that he lives with one of his children at home, and before this incident, he has been independent. P: Will go ahead and send information, P.T. notes, and H&P over to [facility]. Will follow up with a phone call as well. Mendy Montoya RN/Doughnut Maker
[2019-05-04] MEDS: SODIUM CHLORIDE 0.9% FLUSH 10 ML IV (09:49)
[2019-05-04] MEDS: ENOXAPARIN 40 MG/0.4 ML SYRINGE SUBCUT (09:49)
[2019-05-04] MEDS: PANTOPRAZOLE 40 MG VIAL IV (09:49)
[2019-05-04] MEDS: ASPIRIN EC 81 MG TABLET PO (09:49)
[2019-05-04] MEDS: INSULIN GLARGINE 100 UNIT/ML 3ML PEN 35 UNIT SUBCUT (09:50)
[2019-05-04] MEDS: cephALEXin 250 MG CAPSULE 500 MG PO ×4 (10:47→20:48)
--- NOTE | 2019-05-04 11:30 | PT.IPTN ---
Physical Therapy Treatment Note M2 PT-IP Current Condition Start: 05/03/19 14:59 Freq: NEEDED Status: Active Protocol: Document 05/03/19 14:15 AB (Rec: 05/03/19 15:23 AB [id number]) Physical Therapy Current Condition Current Condition Evaluation Date 05/03/19 Treatment Diagnosis cerebellar CVA; difficulty in walking Onset Date 05/02/2019 Precautions Other Precautions falls M3 PT-IP Subjective Start: 05/03/19 14:59 Freq: NEEDED Status: Active Protocol: Document 05/04/19 11:09 AW (Rec: 05/04/19 11:29 AW [id number]) Subjective Physical Therapy Visit Type Type Treatment Note Visit Start Time 10:18 Visit Stop Time 10:45 Total Visit Minutes 27 Number of CLIENT CARE CONSULTANT Visits 0 Physical Therapy Visit Comments Patient Comments Pt feeling better, no emesis today. M4 PT-IP Mobility and Gait Start: 05/03/19 14:59 Freq: NEEDED Status: Active Protocol: Document 05/04/19 11:09 AW (Rec: 05/04/19 11:29 AW [id number]) PT-Bed Mobility Assessment Supine to Sit Supine to Sit Standby Assistance Sit to Supine Sit to Supine Standby Assistance Scooting Scooting to Edge of Bed Standby Assistance Scooting Up and Down in Bed Standby Assistance PT-Transfer Assessment Sit to and From Stand Sit to and from Stand Contact Guard Assistance,1 Person Assistance,Use of Upper Extremities Equipment Transfer Assistive Device Gait Belt,Front Wheeled Walker Transfers Transfer Destination Bed,Chair Transfer Technique pt ambulated with FWW Transfer Ability Level of Assist Minimal Assistance Comments Mobility Comments Pt sitting up in bed upon PT arrival. He completed supine to sit from flat bed SBA. Sitting EOB, pt reported mild dizziness. Supine SBP had been stable 150's-160's/ Sitting EOB, BP was 184/84 HR 76. In sitting, pt leaned toward the left which increased over time . Pt vaguely aware of lateral lean but only briefly able to correct. Pt then completed sit to stand CGA with FWW. In standing pt had immediate LOB to the left which required min A x 1 to recover. With FWW, pt was shifted to his left side. He stood with FWW for support ~3 minutes but was unable to correct his lateral lean. Pt ambulated ~5 feet with FWW mod A x 1. Weight shifting was challenged with decreased foot clearance LLE and mildly ataxic gait. Pt transferred to the chair min A x 1 and cues for eccentric control of descent. Pt requested to return to bed, so stood again with FWW CGA and transferred to the bed where he was repositioned with call light and all needs within reach, bed alarm armed for safety, bilateral calf SCD's donned. Gait Assessment Gait Gait Assistance Required: Moderate Assistance,1 Person Assist Distance (Feet) 5 Able to Maintain Weight Bearing Status Yes During Gait Assistive Devices Assistive Device Gait Belt,Front Wheeled Walker Orthotic/Prosthetic Devices or Brace: No Gait Deviations General Gait Pattern Ataxic,Decreased Stride Length ,Decreased Feet Clearance, Lateral Trunk Lean,Step-to Gait Factors Limiting Gait Function Factors Limiting Gait Function Decreased Activity Tolerance, Incoordination,Poor Balance, Poor Safety Awareness Comments Gait Comments See mobility comments PT-Balance Assessment Sitting Balance and Reactions Static Sitting Balance Ability Poor Dynamic Sitting Balance Ability Poor Standing Balance and Reactions Static Standing Balance Ability Poor Dynamic Standing Balance Ability Poor Device Used FWW M5 PT-IP Objective Assessments Start: 05/03/19 14:59 Freq: NEEDED Status: Active Protocol: Document 05/03/19 14:15 AB (Rec: 05/03/19 15:23 AB [id number]) Orientation Orientation/Cognition Level of Alertness Alert Orientation Name Safety Awareness Decreased Safety Awareness Gross Range of Motion Lower Extremity ROM Assessment Within Functional Limits Strength Lower Extremity Strength Assessment Within Functional Limits M6 PT-IP Treatment Start: 05/03/19 14:59 Freq: NEEDED Status: Active Protocol: Document 05/04/19 11:09 AW (Rec: 05/04/19 11:30 AW [id number]) Physical Therapy Treatment Education Education Provided Safety M7 PT-IP Assessment and Plan Start: 05/03/19 14:59 Freq: NEEDED Status: Active Protocol: Document 05/04/19 11:09 AW (Rec: 05/04/19 11:29 AW [id number]) PT Summary Assessment and Plan Potential Rehabilitation Potential Good Status of Condition at Evaluation Evolving Summary Impairments Pain,ROM,Strength,Balance, Coordination,Sensation,Tone, Cognition,Bed Mobility, Transfers,Gait,Activity Tolerance Progress Towards Goals Slow Progress - Other Assessment Summary Pt continues to demonstrate poor midline orientation. Dizziness affecting mobility this session but nausea and vomiting better controlled. Pt reports left-sided facial numbness/tingling which he did not have before. He was also observed to have resting and gaze-evoked nystagmus. Pt would now benefit from two sessions daily and remains an excellent candidate for acute rehab (preferred) or SNF rehab . Goals Bed Mobility Goal Standby Assistance Transfer Goal Contact Guard Assistance,Front Wheeled Walker Gait Goal Minimal Assistance,Front Wheel Walker Gait Distance 100 Other Goals - up/down 1 step min A Days to Meet Goals 10 Frequency of Treatment Frequency Of Treatment Twice a Day Treatment Plan Physical Therapy Treatment Plan Bed Mobility Training,Transfer Training,Gait Training, Therapeutic Exercise,Balance Retraining,Discharge Planning, Neuromuscular Re-ed, Coordination Retraining Other Recommendations and Next Treatment gaze stabilization exercises, Focus midline orientation, standing tolerance, advance gait as able Recommendations To Nursing Amount of Assist Needed 1 Person Assist Discharge Recommendations PT Discharge Recommendations SNF Rehab,Acute Rehab Other Discharge Recommendations preference for acute rehab
--- NOTE | 2019-05-04 15:01 | PC.NURSE ---
1400 patient noted that he had intermittent double or blurry vision when he turned his head in one direction. Denies any other new symptoms. Denies dizziness at this time. Dr. Mustafa called directly at this time to report occasional episodes of double or blurred vision. No new orders received. Continue to moniotr. Patient denies dizziness, n/v or shortness of breath today. Call light and urinal within reach.
--- NOTE | 2019-05-04 17:21 | PC.NURSE ---
1700 - This FURNISHINGS CONSERVATOR checked on pt. Pt stated, I've been having double vision. When I asked for how long he said it started sometime today. Notified CONRAD Ruano.
--- NOTE | 2019-05-04 17:43 | P.PN_ITS ---
Subjective Subjective Date Patient Seen: 05/04/19 Time Patient Seen: 17:44 Interval history: Mr. 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 MRI showed an acute infarct of his left posterior lateral medulla. Overnight he had no acute events and the patient had improved nausea. He was seen by Physical therapy and recommended for acute rehab. His glucose has remained around 180-210, will increase his Lantus to 40 units from 35 starting tonight. His blood pressure has also been elevated and will start lisinopril. Exam Vital Signs (past 8 hours): - 05/04/19 11:43 05/04/19 12:16 05/04/19 14:00 Temperature 98.5 F 98.0 F 96.7 F L Pulse Rate 69 85 73 Respiratory Rate 18 16 16 Blood Pressure 156/94 H 143/75 H 140/64 Pulse Oximetry 96 93 96 05/04/19 15:50 Temperature 98.3 F Pulse Rate 63 Respiratory Rate 18 Blood Pressure 172/88 H Pulse Oximetry 94 Oxygen Delivery Method Room Air Oxygen Flow Rate 0 Narrative Exam Narrative: GENERAL APPEARANCE: well developed, right handed overweight male leaning to his left side but appears comfortable and in no acute distress. HEENT: Symmetrical facies, slight anisocoria R>L, scleras anicteric and conjunctiva clear, EOMs intact without nystagmus that was previously noted, mucous membranes are moist and pink without lesions or exudate. NECK/THYROID: neck supple, no JVD, no carotid bruit, no thyromegaly, trachea midline. LYMPH NODES: no cervical or supraclavicular lymphadenopathy. SKIN: [place], warm and dry, ulceration right foot dressed with bandage. HEART: regular rate and rhythm, S1-S2, no murmur, no rubs or gallops, brisk cap illary refill, no edema LUNGS: clear to auscultation bilaterally, no coarseness crackles or wheezing, no cough present CHEST: Symmetrical movement, no accessory muscle use, good tidal volume. ABDOMEN: Soft, dull to percussion, no abdominal tenderness, no guarding or peritoneal signs, no organomegaly, no flank or suprapubic tenderness, active bowel tones. BACK: Normal curvature, nontender to palpation, no CVA tenderness on percussion EXTREMITIES: moves all extremities, strength is 5/5 and symmetrical, no deformities or joint effusions. NEUROLOGIC: AAO x4, diminished sensation left face left arm and left leg, bilateral lower extremity neuropathy, hearing is assessed as normal bilateral. Left-sided ataxia is present with slightly improved finger to nose exam compared to yesterday. PSYCH: Alert and responsive, anxious appearing, short responses to questions, cooperative with stable behavior. Objective Labs Result Diagrams: 05/04/19 05:45 05/04/19 05:45 Labs: Laboratory Results - last 24 hr 05/04/19 05/04/19 05:45 05:45 WBC 13.0 H RBC 5.61 Hgb 16.7 Hct 47.8 MCV 85.3 MCH 29.8 MCHC 34.9 RDW 14.2 Plt Count 246 Neut % (Auto) 76.8 H Lymph % (Auto) 13.8 L [place] % (Auto) 7.8 Eos % (Auto) 1.2 L Baso % (Auto) 0.4 Neut # (Auto) 56939 H Lymph # (Auto) 1800 [place] # (Auto) 1000 H Eos # (Auto) 200 Baso # (Auto) 0 Sodium 137 Potassium 4.3 Chloride 103 Carbon Dioxide 29 BUN 15 Creatinine 0.95 Estimated GFR > 60.0 BUN/Creatinine Ratio 15.8 Glucose 213 H D Calcium 8.9 Assessment & Plan Assessment & Plan narrative: This is a 64-year-old right-handed male patient who is transferred to [facility] from [facility] for further evaluation of TIA with the sending facility without MRI capability. Per report from the sending provider patient had an NIH score of 0. Upon arrival transfer documentation is reviewed and the patient has undergone CTA and has abrupt termination of the left PICA and presents Upon arrival and NIH score was 5. [facility] was consulted on arrival and Dr. Parker from Dr. Wei was communicated with. Dr. Parker confirmed no intervention is available and recommended proceeding with standard workup as previously described. 1. Acute CVA, L PICA infarct, present on admission, active. -patient with abrupt onset of headache with ataxia at 7:30 p.m the night of admission. Patient with associated symptoms of numbness and tingling to the left face left arm and left leg, ataxia with impaired movement left hand and nausea and vomiting. Headache has resolved and no complaints of neck pain. -head CT is unremarkable however CTA identifies abrupt termination of the left PICA. MRI stroke showed a focal subacute infarction involving the left posterolateral medulla on MR stroke, noted hypoplastic R A1 segment considered an normal anatomical variant. Symptoms consistent with Wallenberg syndrome. -ordered ondansetron 4 mg every 6 hours as needed without relief of nausea. Ord ered prochlorpromazine 10 mg IV every 6 hours as needed for nausea, along with zofran and reglan. -permissive hypertension was allowed, however will start lisinopril therapy given continuing hypertension today. -aspirin 81 mg daily. -Lipid panel LDL of 117, HDL 40, TG 92, continue atorvastatin 40 mg daily. -MRI stroke protocol as noted above. -echocardiogram currently pending cardiology read. -PT, OT and speech therapy evaluate and treat. Cleared by speech therapy. Physical therapy has recommended acute rehab. 2. Essential hypertension, chronic, active -patient carries a history of hypertension but is on no current medications. -patient was hypertensive and received labetalol 20 mg at [facility]. Blood pressure on arrival to [facility] is 176/88. He was treated as permissive hypertension given his acute CVA, however his blood pressure remains elevated today and will start lisinopril therapy with 10 mg daily. Will continue to adjust as necessary. 3. Diabetes type 2, insulin dependent, uncontrolled with neuropathy, present on admission, active. -patient admits to poorly controlled diabetes, not checking blood sugars regularly and reports bilateral lower extremity neuropathy with last A1c greater than 9. Current A1c 9.7%. -blood sugar on admission labs at [facility] was 348, fingerstick blood sugar on arrival to [place] is 295. -continue fingersticks a.c. HS. -patient typically takes Basaglar 62 units daily and Januvia. Ordered Lantus 35 mg twice daily initially which will be increased to 40 mg twice daily starting this evening for persistent sugars in the 180s to 210 range. -ordered correctional insulin medium scale every 6 hours. 4. Acquired Hypothyroidism, chronic, stable. -continue patient's home regimen of levothyroxine 75 mcg daily. -TSH unremarkable. VTE prophylaxis: SCDs and Lovenox IV fluid: Can discontinue Diet: Passed speech eval, now on carb consistent diet mechanical soft diet per speech therapy Code status: FULL CODE Quality VTE Deep Vein Thrombosis/Pulmonary Embolism Present on Admission: No
[2019-05-04] MEDS: lisinopriL 10 MG TABLET PO (17:52)
--- NOTE | 2019-05-04 18:10 | PC.NURSE ---
Addendum entered by Bindu Jensen R.N. 05/04/19 22:41: Assistance by SECURITY GUARD into bathroom as per pt request. SECURITY GUARD reports pt unsteady on feet. Walker use and staff assistance prn. Returned to bed by SECURITY GUARD. Addendum entered by Bindu Jensen R.N. 05/04/19 21:10: No change in neurological status this shift. Continues to c/o intermittent double vision, numbness remains left side of face and intermittent dizziness. Pt does state, I think it's getting better, though. Original Note: Pt in bed able to feed self and perform own ADL's. Admits to occasional double vision, but denies @ this current assessment. States numbness to left face continues, but states does not affect swallow. Very slight drift with LLE otherwise no neurovascular deficits. Pt admits to occasional dizziness with movement, but denies at rest. Denies pain. BL calf scd's in place. Allevyn gentle border dressing to right plantar aspect intact with scant amount shadowy drainage visible. Admits to neuropathy to feet BL and hands BL.
[2019-05-04] MEDS: ATORVASTATIN 20 MG TABLET 40 MG PO (20:47)
[2019-05-04] MEDS: INSULIN GLARGINE 100 UNIT/ML 3ML PEN 40 UNIT SUBCUT (20:49)
[2019-05-05] VITALS (10 sets, daily range): BP systolic 144–169; BP diastolic 68–92; PULSE 55–68; RESP 14–18; TEMP 36.4–37; O2SAT 94–98
--- NOTE | 2019-05-05 04:10 | PC.NURSE ---
Pt is AxOx4, VSS, tolerating room air. No complaints of pain. Denies any nausea or double vision/blurry vision. Slight non-productive cough at times. Pt reports some left sided weakness in arm and leg; good strong grasp and able to move leg in bed. Did not witness pt ambulate. NIH=1 for some mild left sided facial numbness that he reports its resolving No speech deficit noted. NS@75mL/hr Fingerstick = 171 overnight Tele: NSR Neuropathy at baseline to b/l feet due to diabetes. Alleyvn dressing to right foot is intact with some shadow drainage. b/l SCDs on throughout night
[2019-05-05 06:31] LABS: Add Manual Diff / Slide Review NO; Basophils Absolute Auto 100 /uL (0-100); Basophils Percent Auto 0.6 % (0-2); Eosinophils Absolute Auto 400 /uL (0-450); Hematocrit 45.2 % (41-53); Hemoglobin 15.9 g/dL (13.5-17.5); Lymphocytes Absolute Auto 2500 /uL (1100-4500); Lymphocytes Percent Auto 25.3 % (25-40); Mean Corpuscular HGB Conc 35.2 % (30-36); Mean Corpuscular Hemoglobin 29.9 PG (26-34); Monocytes Absolute Auto 1000 /uL (0-900); Monocytes Percent Auto 10.1 % (3-14); Neutrophils Absolute Auto 6000 /uL (1500-7000); Platelet Count 241 X10^3/uL (150-400); Red Blood Cell Count 5.32 X10^6/uL (4.5-5.9); White Blood Cell Count 10.1 X10^3/uL (4.5-11.0)
[2019-05-05 06:54] LABS: BUN Creatinine Ratio 17.4 (6-22); Blood Urea Nitrogen 15 mg/dL (9-20); Calcium 8.6 mg/dL (8.4-10.2); Carbon Dioxide 29 mmol/L (22-32); Chloride 104 mmol/L (98-107); Estimated Glomerular Filt Rate > 60.0 mL/min (>60); Glucose 161 mg/dL (80-110); HEMOLYSIS < 15 (0-50); Potassium 3.9 mmol/L (3.4-5.1); Sodium 135 mmol/L (137-145)
[2019-05-05] MEDS: ENOXAPARIN 40 MG/0.4 ML SYRINGE SUBCUT (08:25)
[2019-05-05] MEDS: PANTOPRAZOLE 40 MG VIAL IV (08:25)
[2019-05-05] MEDS: ASPIRIN EC 81 MG TABLET PO (08:25)
[2019-05-05] MEDS: lisinopriL 10 MG TABLET PO ×2 (08:25→17:21)
[2019-05-05] MEDS: cephALEXin 250 MG CAPSULE 500 MG PO ×4 (08:25→21:16)
[2019-05-05] MEDS: INSULIN GLARGINE 100 UNIT/ML 3ML PEN 40 UNIT SUBCUT ×2 (08:26→21:13)
[2019-05-05] MEDS: INSULIN ASPART 100 UNIT/ML INSULN PEN SUBCUT ×3 (08:26→17:20)
[2019-05-05] MEDS: SODIUM CHLORIDE 0.9% FLUSH 10 ML IV ×2 (08:26→21:16)
--- NOTE | 2019-05-05 09:50 | OT.IP.EVAL ---
Current Diagnoses Cerebral infarction due to unspecified occlusion or stenosis of left cerebellar artery (05/02/19) Past Medical History (Last Updated 05/03/19 @ 01:34 by ZENY Galvan) Diabetic neuropathy (Chronic) Diabetic ulcer of right foot (Chronic) Hypertension (Acute) Hypothyroidism (Acute) Surgical History (Last Updated 05/03/19 @ 01:34 by ZENY Galvan) History of amputation of toe (Acute) History of knee surgery (Acute) Occupational Therapy Inpatient Evaluation/Re-Eval M1 PT/OT-IP Prior Functional Status Start: 05/03/19 14:59 Freq: NEEDED Status: Active Protocol: Document 05/05/19 09:47 [facility] (Rec: 05/05/19 10:22 [facility] [id number]) Medical Review Prior Functional Status Medical History Reviewed Yes Communication able to make needs known Mobility and Gait pt stated that he was independent with all mobilities and ambulation without AD Activities of Daily Living and IADL's Completely independent with all ADl's, IADl's and worked as an primary therapist. Pt does his own medications and bills. Prior Functional Level (Other details) Pt lives with his son who works during the day. Social History Household Members children Living Arrangements House Number of Floors (Floors) One Floor Number of Stairs To Enter/Railing? 1 step to enter Home Environment High Toilet,Walk in Shower, Built-In Shower Seat Home Equipment Grab Bars In Shower M2 OT-IP Current Condition Start: 05/03/19 12:49 Freq: Status: Active Protocol: Document 05/05/19 09:47 [facility] (Rec: 05/05/19 10:22 [facility] [id number]) Occupational Therapy Current Condition Current Condition Evaluation Date 05/05/19 Treatment Diagnosis Cerebellar CVA Diagnosis Onset Date 05/02/19 Weight Bearing Status Weight Bearing Status Weight Bear as Tolerated M3 OT- IP Subjective and Pain Start: 05/03/19 12:49 Freq: Status: Active Protocol: Document 05/05/19 09:47 [facility] (Rec: 05/05/19 10:22 [facility] [id number]) OT- Subjective Occupational Therapy Visit Type Type Initial Evaluation Visit Start Time 09:00 Visit Stop Time 09:50 Total Visit Minutes 50 Occupational Therapy Visit Comments Patient Comments Pt agreeable to get up for OT eval. Patient/Caregiver Goals To go to intensive inpt rehab for his stroke prior to going home. OT Pain Assessment Pain When Pain Assessed At Rest M4 OT- IP ADL's Start: 05/03/19 12:49 Freq: Status: Active Protocol: Document 05/05/19 09:47 [facility] (Rec: 05/05/19 10:22 [facility] [id number]) OT [id number]-Preeigm Comments OT Self-Feeding Comments Pt states able to eat on his own , however needing assist for set-up due to decreased FMS. OT ADL-Grooming General Evaluation Grooming Ability Standby Assistance Areas Needing Assistance Retrieving/Set-up of Grooming Items Comments OT Grooming Comments Assist to get items and increased time to open packages for brush and toothbrush, pt favoring use of right hand to tear open the packages. OT ADL-Oral Care General Eval Oral Care Ability Independent OT ADL-Dressing General Eval Lower Body Dressing Ability Moderate Assistance Comments OT Dressing Comments Pt having trouble to grasp shoe lace with left hand and needing right hand to compensate more when trying to tie his shoes while leaning forwards from the edge of the bed. Pt losing his balance as leaning to the left while trying to tie his shoes and needs NADINE. Pt would require MODA or greater if trying to stand and do brief /pants management needs. OT ADL-Toileting Comments OT Toileting Comments Pt not having to use the toilet at this time. OT ADL-Bathing Comments OT Bathing Comments Not performed. M5 OT- IP IADL's Start: 05/03/19 12:49 Freq: Status: Active Protocol: Document 05/05/19 09:47 [facility] (Rec: 05/05/19 10:22 [facility] [id number]) OT-Instrumental Activities of Daily Living Home Safety Awareness Awareness of Need for Assistance at Home Good Awareness Ability to Problem Solve Emergency Able to Problem Solve Situations Medication Management Medication Management No Deficits Identified Money Management Money Management No Deficits Identified Meal Preparation Meal Preparation Comments At this time pt would require assist due to decreased static and dynamic balance. Fiber Optic Technician Fiber Optic Technician Comments Pt would benefit from assist. Driving Driving Comments See comments below. From a cognitive standpoint appears intact, however from a physical aspect due to his decreased static and dynamic balance and coordination, may not be appropriate to drive yet. M6 OT- IP Functional Cognition Start: 05/03/19 12:49 Freq: Status: Active Protocol: Document 05/05/19 09:47 [facility] (Rec: 05/05/19 10:22 [facility] [id number]) Cognitive Factors Limiting Selfcare Function Cognitive Ability Level of Alertness Alert Patient Orientation Name,Age,Birthday,Month,Date, Year,Day of Week,Place, Situation Attention Span Ability Capable of Focused Attention, Capable of Sustained Attention Ability to Follow Commands Able to Follow Multi-Step Commands Memory Description No Deficits Noted Problem Solving Ability No deficits Noted Executive Function Ability No Deficits Noted Cognitive Comments Cognitive Assessment Comments Pt appears to be at baseline with cognition and does not appear to have any deficits. Pt scored 51 seconds on Colby Making B which implies normal for mental flexibility, visual attention, execution thinking , and speed of processing. OT- Vision and Hearing OT- Hearing Assessment OT- Hearing Assessment WFL OT- Vision Assessment Visual Acuity Glasses All The Time Occular Pursuits WFL Visual Convergence WFL Visual Gonzalez WFL Vision Assessment Comments Pt states prior was seeing double, however not at this time. M7 OT- IP Mobility and Balance Start: 05/03/19 12:49 Freq: Status: Active Protocol: Document 05/05/19 09:47 [facility] (Rec: 05/05/19 10:22 [facility] [id number]) OT- Bed Mobility Assessment Rolling Type of Rolling Roll to Right Level of Assistance Standby Assistance Supine to Sit Supine to Sit Assist Standby Assistance Sit to Supine Sit to Supine Assist Standby Assistance Scooting Scooting to Edge of Bed Contact Guard Assistance OT-Transfer Assessment Sit to and From Stand Sit to and from Stand Minimal Assistance Transfers Transfer Ability Minimal Assistance,Maximum Assistance Technique Transfer Destination Bed,Chair Transfer Technique Stand Step Pivot Devices Transfer Assistive Devices Gait Belt,Front Wheeled Walker Comments Mobility Comments Increased time to get up from supine to sit and tends to lean to the left. Sit to stand to FWW NADINE and NADINE for balance as at times leans to the left. Without the FWW, transfer from to chair to bed MAX A . NADINE to stand and then MODA/MAX A to take a step to the bed as very unsteady with his balance and leaning to the left. OT- Balance Assessment Sitting Balance and Reactions Static Sitting Balance Ability Fair Dynamic Sitting Balance Ability Poor Standing Balance and Reactions Static Standing Balance Ability Poor Dynamic Standing Balance Ability Poor Comments Other Balance Tests/Deviations/Treatment Pt needing NADINE for balance : while leaning forwards to tie his shoes. heavily relies on the FWW for balance with walking to the sink and also therapist to hold gait belt. During turning to the left pt loss his balance and needing MODA to help regain his balance with FWW. M8 OT- IP Objective Assessments Start: 05/03/19 12:49 Freq: Status: Active Protocol: Document 05/05/19 09:47 [facility] (Rec: 05/05/19 10:22 [facility] [id number]) OT Gross Range of Motion Upper Extremity Range of Motion Assessment Within Functional Limits OT Strength Upper Extremity Strength Assessment Left Impaired Comments Strength Comments RUE 5/5, LUE form 5/5 to 4/5 form proximal to distal. OT- Coordination Assessment Upper Extremity Finger to Nose Test Left UE Impaired Comments Coordination Comments Left hand more involved with right hand. Pt states prior has difficulty for years with right hand at times not able to grasp smaller objects well, Things just slip out. 9 hole peg norms for his age right hand 23.5 seconds, pt scored 38 sec. Left hand 25.5, pt scored 80seconds. Pt having trouble with in hand manipulation and ability to pepper picker smaller coins such as dime/millie. OT-Muscle Tone Assessment Muscle Tone WNL Yes OT Sensation Assessment Comments Summary Comments WFL for light touch. M9 OT- IP Assessment and Plan Start: 05/03/19 12:49 Freq: Status: Active Protocol: Document 05/05/19 09:47 [facility] (Rec: 05/05/19 10:22 [facility] [id number]) OT Summary Assessment and Plan Potential Rehabilitation Potential Excellent Analytic Complexity at Evaluation Low Summary OT Impairments Strength,Balance,Coordination, Functional Mobility,Dressing, Toileting,Bathing,Toilet Transfers,Shower Transfers, Activity Tolerance Progress Towards Goals Progressing Toward Goals Assessment Summary Pt main barrier are decreased balance, coordination, and ability to coordinate UE movement with LE movements. Pt very motivated, pleasant and willing to participate in therapy. Pt has great potential as mainly having decreased balance and coordination needs and appears intact for cognition. 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 Goals Self-Feeding Goal Independent Grooming Goal Independent Dressing Goal Independent Toilet Transfer Goal Independent Shower Transfer Goal Independent Patient/Caregiver Education Goal Caregiver Independent Assisting Patient Frequency of Treatment Frequency Of Treatment Once a Day Treatment Plan OT Treatment Plan ADL Training,Functional Mobility,Patient/Family Education,Discharge Planning Discharge Recommendations OT Discharge Recommendations Acute Rehab Home Equipment Needs Defer to skilled rehab Transportation Needs at Discharge Wheelchair/Cabulance
--- NOTE | 2019-05-05 10:50 | PT.IPTN ---
Current Diagnoses Cerebral infarction due to unspecified occlusion or stenosis of left cerebellar artery (05/02/19) Physical Therapy Treatment Note M2 PT-IP Current Condition Start: 05/03/19 14:59 Freq: NEEDED Status: Active Protocol: Document 05/03/19 14:15 AB (Rec: 05/03/19 15:23 AB [id number]) Physical Therapy Current Condition Current Condition Evaluation Date 05/03/19 Treatment Diagnosis cerebellar CVA; difficulty in walking Onset Date 05/02/2019 Precautions Other Precautions falls M3 PT-IP Subjective Start: 05/03/19 14:59 Freq: NEEDED Status: Active Protocol: Document 05/05/19 10:12 LJ (Rec: 05/05/19 10:50 LJ [id number]) Subjective Physical Therapy Visit Type Type Treatment Note Visit Start Time 10:12 Visit Stop Time 10:24 Total Visit Minutes 12 Notes pt resting in bed. Just finished with OT several minutes ago. Ot states the pt was able to stand at sink SBA and walk in the room Min to CGA. Number of SAND POLISHER Visits 1 Physical Therapy Visit Comments Patient Comments Pt feeling better. No dizziness or nausea M4 PT-IP Mobility and Gait Start: 05/03/19 14:59 Freq: NEEDED Status: Active Protocol: Document 05/05/19 10:12 LJ (Rec: 05/05/19 10:50 LJ [id number]) PT-Bed Mobility Assessment Supine to Sit Supine to Sit Standby Assistance Sit to Supine Sit to Supine Standby Assistance Scooting Scooting to Edge of Bed Standby Assistance Scooting Up and Down in Bed Standby Assistance PT-Transfer Assessment Sit to and From Stand Sit to and from Stand Contact Guard Assistance,1 Person Assistance,Use of Upper Extremities Equipment Transfer Assistive Device Gait Belt,Front Wheeled Walker Transfers Transfer Destination Bed Transfer Technique pt ambulated with FWW Transfer Ability Level of Assist Minimal Assistance Comments Mobility Comments Pt sitting in bed with head of bed elevated. Pt required SBA to move to side of bed into sitting position. Still has left lean in sitting but did not require assistance for balance. Gait Assessment Gait Gait Assistance Required: Moderate Assistance,Maximum Assistance Distance (Feet) 10 Able to Maintain Weight Bearing Status Yes During Gait Assistive Devices Assistive Device Gait Belt,Front Wheeled Walker Orthotic/Prosthetic Devices or Brace: No Gait Deviations General Gait Pattern Ataxic,Decreased Stride Length ,Decreased Feet Clearance, Lateral Trunk Lean,Step-to Gait Factors Limiting Gait Function Factors Limiting Gait Function Decreased Activity Tolerance, Incoordination,Poor Balance, Poor Safety Awareness Comments Gait Comments Pt was mostly MaxA for balance during slow gait clint window seat and back to bed. Experienced multiple LOB every couple of steps during forward walking and turning around requiring MaxA to prevent fall. Pt was unable to weight shift onto right LE but ablt to do so on left LE. He could not move his weight onto his left side. Pt ambulated back to bed at SAND POLISHER request due to unsafe gait. M5 PT-IP Objective Assessments Start: 05/03/19 14:59 Freq: NEEDED Status: Active Protocol: Document 05/03/19 14:15 AB (Rec: 05/03/19 15:23 AB [id number]) Orientation Orientation/Cognition Level of Alertness Alert Orientation Name Safety Awareness Decreased Safety Awareness Gross Range of Motion Lower Extremity ROM Assessment Within Functional Limits Strength Lower Extremity Strength Assessment Within Functional Limits M6 PT-IP Treatment Start: 05/03/19 14:59 Freq: NEEDED Status: Active Protocol: Document 05/05/19 10:12 LJ (Rec: 05/05/19 10:50 LJ [id number]) Physical Therapy Treatment Other Treatments Other Treatment Performed standing weight shifting M7 PT-IP Assessment and Plan Start: 05/03/19 14:59 Freq: NEEDED Status: Active Protocol: Document 05/05/19 10:12 LJ (Rec: 05/05/19 10:50 LJ [id number]) PT Summary Assessment and Plan Potential Rehabilitation Potential Good Status of Condition at Evaluation Evolving Summary Impairments Pain,ROM,Strength,Balance, Coordination,Sensation,Tone, Cognition,Bed Mobility, Transfers,Gait,Activity Tolerance Progress Towards Goals Slow Progress - Other Assessment Summary Pt continues to demonstrate poor midline orientation and unable to self correct for more than a few seconds. Pt's gait this session required ModA to MaxA to prevent falling. OT was in earlier and pt was able to stand at sink and ambulate Marcell to CGA but now is unable to ambulate safely even with MaxA. Nursing shared their observation of his tendency to wax and wane in abilities. Recommending to be prepared for 2 person assist if attempting to ambulate pt. Goals Bed Mobility Goal Standby Assistance Transfer Goal Contact Guard Assistance,Front Wheeled Walker Gait Goal Minimal Assistance,Front Wheel Walker Gait Distance 100 Other Goals - up/down 1 step min A Days to Meet Goals 10 Frequency of Treatment Frequency Of Treatment Twice a Day Treatment Plan Physical Therapy Treatment Plan Bed Mobility Training,Transfer Training,Gait Training, Therapeutic Exercise,Balance Retraining,Discharge Planning, Neuromuscular Re-ed, Coordination Retraining Recommendations To Nursing Amount of Assist Needed 1 Person Assist Discharge Recommendations PT Discharge Recommendations SNF Rehab,Acute Rehab Other Discharge Recommendations preference for acute rehab
--- NOTE | 2019-05-05 14:23 | CM.DPC ---
DCP Inpt Rehab planning: Per MD, pt remains stable and could d/c if placement found. ALL updated OT to please prioritize pt first this morning so OT note could be used towards insurance auth. ALL faxed OT note to Layla at [facility] and she confirms that she sent in request for insurance auth to [facility] and ALL also faxed requested med list. Layla does not anticipate auth today but plans to call [facility] in the morning to get auth for Inpt rehab. ALL updated MD and RN who kindly will update pt due to SW triage needs. Plan: ALL to follow closely in the morning with Layla at [facility] to determine if insurance auth obtained. JUAN ANTONIO Keys
--- NOTE | 2019-05-05 16:54 | PM.PN.1 ---
Subjective Subjective Date Patient Seen: 05/05/19 Interval history: Harpreet Panda is a 64-year-old right-handed male with a past medical history significant for untreated hypertension, poorly controlled diabetes mellitus type 2, insulin using, with complication of neuropathy and hypothyroidism who was transferred and directly admitted from [facility] for further evaluation of possible CVA with MRI capability. The patient is sitting at bedside working with OT. He continues to have ataxia, discoordination and intermittent double vision. He has no other complaints and denies headache, shortness of breath, chest pain, abdominal pain, nausea, vomiting, fever, chills, dysuria, diarrhea or constipation. He is voiding and eliminating without difficulty. He up with assistance and PT/OT. Exam Vital Signs (past 8 hours): - 05/05/19 12:00 05/05/19 15:55 Temperature 97.8 F 98.1 F Pulse Rate 59 L 65 Respiratory Rate 16 18 Blood Pressure 151/75 H 169/92 H Pulse Oximetry 96 96 Oxygen Delivery Method Room Air Oxygen Flow Rate 0 Narrative Exam Narrative: General: Middle aged male sitting at edge of bed and in no acute distress, well-developed, well-nourished, appropriately interactive. HEENT: Normocephalic, atraumatic. External ears without defect. Pupils equal, round, and reactive to light. Anicteric sclerae, moist conjunctivae, and no lid lag. Oropharynx free of erythema and cobble stoning with moist mucosa. Neck: Supple with full range of motion. No jugular venous distension. No bruits. No lymphadenopathy or thyromegaly. Cardiovascular: Regular rate and rhythm without murmurs, rubs, or gallops appreciated. Pulmonary: Clear to auscultation bilaterally without crackles, wheezes, or rhonchi. Normal respiratory effort with no use of accessory muscles. Abdomen: Soft, bowel sounds present, nontender, nondistended. No hepatosplenomegaly or masses appreciated. Extremities: No clubbing, cyanosis, or edema. Skin: Normal temperature, turgor, and texture; no rash, ulcers, or subcutaneous nodules appreciated. Neurological: Cranial nerves grossly intact. Left-sided ataxia and discoordination with finger-nose and [id number]. Patient frequently leans to left side and has subtle weakness of left upper and lower extremity MS +4/5. Psychiatric: Normal mood and affect. Alert and oriented to person, place, and time. Objective Labs Result Diagrams: 05/06/19 06:05 05/06/19 06:05 Labs: Laboratory Results - last 24 hr 05/05/19 05/05/19 06:20 06:20 WBC 10.1 RBC 5.32 Hgb 15.9 Hct 45.2 MCV 85.0 MCH 29.9 MCHC 35.2 RDW 14.0 Plt Count 241 Neut % (Auto) 60.0 Lymph % (Auto) 25.3 [place] % (Auto) 10.1 Eos % (Auto) 4.0 Baso % (Auto) 0.6 Neut # (Auto) 6000 Lymph # (Auto) 2500 [place] # (Auto) 1000 H Eos # (Auto) 400 Baso # (Auto) 100 Sodium 135 L Potassium 3.9 Chloride 104 Carbon Dioxide 29 BUN 15 Creatinine 0.86 Estimated GFR > 60.0 BUN/Creatinine Ratio 17.4 Glucose 161 H Calcium 8.6 Assessment & Plan Assessment & Plan narrative: Harpreet Panda is a 64-year-old right-handed male with a past medical history significant for untreated hypertension, poorly controlled diabetes mellitus type 2, insulin using, with complication of neuropathy and hypothyroidism who was transferred and directly admitted from [facility] for further evaluation of possible CVA with MRI capability. 1. Acute L PICA CVA, present on admission. Active. -Patient with abrupt onset of headache with ataxia at 7:30 p.m on the night of admission. Patient had associated symptoms of numbness and tingling to the left face left arm and left leg, ataxia with impaired movement left hand and nausea and vomiting. Headache has resolved and no complaints of neck pain. -Initial NIH score at [facility] was 0. Upon arrival to [facility] NIH score was 5. [facility] was consulted on arrival Dr. Parker of neurology determined patient not to be an interventional candidate and recommended proceeding with standard workup as previously described. -CT brain did not demonstarte any acute intracranial abnormalities. -CTA demonstrated abrupt termination of the left PICA. -MRI stroke protocol demonstrated a focal subacute infarction involving the left posterolateral medulla. Also noted hypoplastic R A1 segment considered an normal anatomical variant. Symptoms consistent with Wallenberg syndrome. -Ordered ondansetron 4 mg every 6 hours as needed without relief of nausea. Ordered prochlorpromazine 10 mg IV every 6 hours as needed for nausea, along with zofran and reglan. -Allowed for permissive hypertension x 24 hours. Started lisinopril as below for better BP control as below. -Continue to monitor closely on telemetry. Patient has been in sinus rhythm with frequent PVCs. -Risk stratified with hemoglobin A1C elevated at 9.7% and lipid panel which demonstrated: Total cholesterol 175, triglycerides 92, LDL of 117 (goal < 70), HDL 40. -Echocardiogram demonstrated normal EF 60-65%, normal diastolic parameters, normal RV size and function, severely dilated left atrium, mildly dilated right atrium, extracardiac son such as pulmonary AV malformation, discrete nodular thickening of right coronary cusp, [id number] aortic regurgitation, no other significant valvular heart disease, aortic root mildly dilated and ascending aorta mild moderately enlarged. -Continue aspirin 81 mg daily and atorvastatin 40 mg daily at bedtime for stroke prophylaxis. Discussed stroke prophylaxis with [facility] as patient has potential extracardiac shunt and severely dilated left atrium without evidence of atrial fibrillation. [facility] recommended continued cardiac monitoring and if no evidence of atrial fibrillation would recommend event monitor such as ZIO patch to assure patient does not have underlying atrial fibrillation. -Continue physical and occupational therapy and evaluation. Cleared by speech therapy. Currently pursuing inpatient rehabilitation and pending insurance authorization. 2. Hypertension, chronic, present on admission. Stable. -Patient has a history of hypertension but not currently medically treated. -Patient was hypertensive and received labetalol 20 mg IV at [facility]. Blood pressure on arrival to [facility] was 176/88 and allowed for permissive hypertension x 24 hours given his acute CVA. -Started and continue lisinopril increased from 10 mg to 20 mg daily for better BP control. May need to titrate up slowly for better BP control or add another anti-hypertensive. -Continue to monitor BP closely. 3. Diabetes mellitus type 2, insulin-using, uncontrolled with neuropathy, present on admission, active. -Hemoglobin A1c 9.7% indicative of poor glycemic control. Patient admits not checking blood sugars regularly and reports complication of bilateral lower extremity neuropathy. -Continue [facility] blood glucose checks and low dose correctional scale insulin. -Patient home regimen is Basaglar 62 units daily and Januvia 1 tab twice daily. Continue Lantus 40 units twice daily. Blood glucose is improved in . -Continue heart healthy/carbohydrate consistent diet. 4. Hypothyroidism, chronic, present on admission. Stable. -TSH normal at 1.20. -Continue home levothyroxine 75 mcg daily. Code status: FULL CODE VTE prophylaxis: SCDs and Lovenox Disposition: Patient likely to discharge to acute rehabilitation in next 1-2 days and await insurance approval. Quality VTE Deep Vein Thrombosis/Pulmonary Embolism Present on Admission: No
--- NOTE | 2019-05-05 17:30 | PT.IPTN ---
Current Diagnoses Cerebral infarction due to unspecified occlusion or stenosis of left cerebellar artery (05/02/19) Physical Therapy Treatment Note M2 PT-IP Current Condition Start: 05/03/19 14:59 Freq: NEEDED Status: Active Protocol: Document 05/05/19 17:30 LRN (Rec: 05/05/19 18:08 LRN [id number]) Physical Therapy Current Condition Current Condition Evaluation Date 05/03/19 Treatment Diagnosis cerebellar CVA; difficulty in walking Onset Date 05/02/2019 M3 PT-IP Subjective Start: 05/03/19 14:59 Freq: NEEDED Status: Active Protocol: Document 05/05/19 17:30 LRN (Rec: 05/05/19 18:08 LRN [id number]) Subjective Physical Therapy Visit Type Type Treatment Note Visit Start Time 17:30 Visit Stop Time 17:54 Total Visit Minutes 24 Notes Pt resting in bed, just finished dinner. Number of CHILD CARE COORDINATOR Visits 0 Physical Therapy Visit Comments Patient Comments States he is doing much better now than when he had PT in the morning. Able to walk with assist without falling over. M4 PT-IP Mobility and Gait Start: 05/03/19 14:59 Freq: NEEDED Status: Active Protocol: Document 05/05/19 17:30 LRN (Rec: 05/05/19 18:08 LRN [id number]) PT-Bed Mobility Assessment Supine to Sit Supine to Sit Independent Sit to Supine Sit to Supine Independent PT-Transfer Assessment Sit to and From Stand Sit to and from Stand Contact Guard Assistance,1 Person Assistance,Use of Upper Extremities Equipment Transfer Assistive Device Gait Belt,Front Wheeled Walker Transfers Transfer Destination Bed Transfer Technique pt ambulated with FWW Transfer Ability Level of Assist Contact Guard Assistance Comments Mobility Comments Pt had 2 episodes of LOB while ambulating. He had increased sway to the left with weight shifting and with exercise. Pt tends to lean to the left and is forward bent at hips due to feeling of falling backward. Gait Assessment Gait Gait Assistance Required: Minimum Assistance,Moderate Assistance,1 Person Assist Distance (Feet) 20 Able to Maintain Weight Bearing Status Yes During Gait Assistive Devices Assistive Device Gait Belt,Front Wheeled Walker Orthotic/Prosthetic Devices or Brace: No Gait Deviations General Gait Pattern Decreased Stride Length, Decreased Feet Clearance, Flexed Trunk,Lateral Trunk Lean,Step-to Gait Comments Gait Comments Pt tends to have a reduced [place] . See mobility comments. PT-Balance Assessment Sitting Balance and Reactions Static Sitting Balance Ability Good Dynamic Sitting Balance Ability Fair Standing Balance and Reactions Static Standing Balance Ability Fair Dynamic Standing Balance Ability Fair Device Used FWW Comments Other Balance Tests/Deviations/Treatment Pt is able to lift one leg : while holding onto his walker for brief amount of time. He tends to lean to the left. M5 PT-IP Objective Assessments Start: 05/03/19 14:59 Freq: NEEDED Status: Active Protocol: Document 05/05/19 17:30 LRN (Rec: 05/05/19 18:08 LRN [id number]) Gross Range of Motion Upper Extremity ROM Assessment Left Impaired Lower Extremity ROM Assessment Within Functional Limits Strength Upper Extremity Strength Assessment Left Impaired Lower Extremity Strength Assessment Within Functional Limits M6 PT-IP Treatment Start: 05/03/19 14:59 Freq: NEEDED Status: Active Protocol: Document 05/05/19 17:30 LRN (Rec: 05/05/19 18:08 LRN [id number]) Physical Therapy Treatment Other Treatments Other Treatment Performed Sitting manual resisted trunk flex, ext, rotation bilaterally. Standing with FWW/GB for weight shifting and toe/heel ups. M7 PT-IP Assessment and Plan Start: 05/03/19 14:59 Freq: NEEDED Status: Active Protocol: Document 05/05/19 17:30 LRN (Rec: 05/05/19 18:08 LRN [id number]) PT Summary Assessment and Plan Potential Rehabilitation Potential Good Status of Condition at Evaluation Evolving Summary Impairments Pain,ROM,Strength,Balance, Coordination,Sensation,Tone, Cognition,Bed Mobility, Transfers,Gait,Activity Tolerance Progress Towards Goals Slow Progress - Other Assessment Summary Pt continues to demonstrate poor midline orientation and unable to self correct for more than a few seconds. Pt's gait this session required ModA to MaxA to prevent falling. OT was in earlier and pt was able to stand at sink and ambulate Marcell to CGA but now is unable to ambulate safely even with MaxA. Nursing shared their observation of his tendancy to wax and wane in ablilties. Recommending to be prepared for 2 person assist if attempting to ambulate pt. Goals Bed Mobility Goal Standby Assistance Transfer Goal Contact Guard Assistance,Front Wheeled Walker Gait Goal Minimal Assistance,Front Wheel Walker Gait Distance 100 Other Goals - up/down 1 step min A Days to Meet Goals 10 Frequency of Treatment Frequency Of Treatment Twice a Day Treatment Plan Physical Therapy Treatment Plan Bed Mobility Training,Transfer Training,Gait Training, Therapeutic Exercise,Balance Retraining,Discharge Planning, Neuromuscular Re-ed, Coordination Retraining Other Recommendations and Next Treatment gaze stabilization exercises, Focus midline orientation, standing tolerance, advance gait as able Recommendations To Nursing Amount of Assist Needed 1 Person Assist Discharge Recommendations PT Discharge Recommendations SNF Rehab,Acute Rehab Other Discharge Recommendations Pt would benefit more from acute rehab
[2019-05-05] MEDS: ATORVASTATIN 20 MG TABLET 40 MG PO (21:15)
[2019-05-06 02:59] VITALS: BP 152/74; PULSE 63; RESP 18; TEMP 36.5; O2SAT 94
[2019-05-06 03:00] VITALS: O2SAT 94
[2019-05-06 06:25] LABS: Add Manual Diff / Slide Review NO; Basophils Absolute Auto 100 /uL (0-100); Basophils Percent Auto 0.7 % (0-2); Eosinophils Absolute Auto 400 /uL (0-450); Eosinophils Percent Auto 4.1 % (2-4); Hematocrit 49.5 % (41-53); Hemoglobin 17.6 g/dL (13.5-17.5); Lymphocytes Absolute Auto 2600 /uL (1100-4500); Lymphocytes Percent Auto 24.7 % (25-40); Mean Corpuscular HGB Conc 35.6 % (30-36); Mean Corpuscular Volume 84.4 fL (80-100); Monocytes Absolute Auto 1000 /uL (0-900); Monocytes Percent Auto 9.8 % (3-14); Neutrophils Absolute Auto 6300 /uL (1500-7000); Neutrophils Percent Auto 60.7 % (50-75); Platelet Count 261 X10^3/uL (150-400); Red Blood Cell Count 5.86 X10^6/uL (4.5-5.9); White Blood Cell Count 10.4 X10^3/uL (4.5-11.0)
[2019-05-06 06:33] LABS: Blood Urea Nitrogen 15 mg/dL (9-20); Calcium 9.1 mg/dL (8.4-10.2); Carbon Dioxide 25 mmol/L (22-32); Chloride 103 mmol/L (98-107); Estimated Glomerular Filt Rate > 60.0 mL/min (>60); Glucose 113 mg/dL (80-110); HEMOLYSIS 16 (0-50); Potassium 3.8 mmol/L (3.4-5.1); Sodium 135 mmol/L (137-145)
[2019-05-06 08:00] VITALS: BP 159/83; PULSE 61; RESP 18; TEMP 36.4; O2SAT 95
--- NOTE | 2019-05-06 08:37 | PM.DS.1 ---
History of Present Illness History of Present Illness Date Patient Seen: 05/03/19 Chief complaint: TIA Narrative: Written by Stan MOURA: Mr. 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 The patient states his symptoms began abruptly at 7:30 p.m. and probably presented to the emergency department. Patient describes having an occipital headache and difficulty walking and bumping into things and loss of coordination, numbness and tingling in the left face and hand. Patient has had associated symptoms of nausea and vomiting but denies visual changes. He has no personal history of cardiovascular cerebrovascular disease however his father in his 60s from [place] in his mother in her 80s from a stroke. Patient states he used to take aspirin 81 mg daily but none currently. The patient endorses that he does not regularly check his blood sugars and reports his most recent A1c was greater than 9. He has had a chronic diabetic ulcer on his right foot and has had toe amputated. He reports no other recent illness and has had no fevers or chills. Denies complaints of nasal congestion or sore throat. He has had no chest pain or palpitations or racing heartbeat. He denies shortness of breath cough or wheezing. He has had no abdominal pain and no nausea vomiting prior to tonight's episodes. He reports no changes in bowel bladder habits with his last bowel movement being yesterday. He reports nocturia 1-2 times nightly. At [facility] the patient was afebrile on arrival with a temperature 36.7? C heart rate of 95, hypertensive at 203/90 respirations of 14 saturating 97% on room air. A CT of the head is reported as unremarkable and a CT angiography shows a 30% occlusion of the right ICA and an abrupt termination of the left PICA. On laboratory analysis the patient has a white count of 10.0, hemoglobin of 18.9 and hematocrit of 52.1 with platelets of 281. His electrolytes are within normal limits and has a BUN of 16 and creatinine 1.1. His nonfasting glucose is 348. His liver functions are within normal range as lipase of 55 and albumin of 4.6. He has a PT of 11.1 and an INR of 1.0 on urinalysis he has glucosuria with no infection. In the ER the at [facility] patient received labetalol 20 mg IV for hypertension, aspirin 324 mg and Zofran [address] Wei the [facility] ER provider reports the patient's symptoms have resolved with no headache or ataxia and scores the patient had an NIH score of 0. He had contacted [facility] in [facility]y and spoke with Dr. Parker who recommended no acute interventions and follow complete stroke workup. The patient is transferred to [facility] as would be health does not currently have MRI services and will not for the next 5 days. Transfer is requested and accepted to the medicine service for further workup and evaluation for TIA. Discharge Providers Provider Date of admission: 05/02/19 21:55 Discharge Date: 05/06/19 Primary care physician: Ramesh Danielson MD Consults: 05/02/19 22:30 Consult to Discharge Planning Routine Comment: Consult to Occupational Therapy Evaluate & Treat Comment: Cerebellar stroke Physician Instructions: Evaluate and treat Consult to Physical Therapy Evaluate & Treat Comment: Cerebellar stroke Physician Instructions: Evaluate and Treat 05/02/19 22:32 Consult to Speech Therapy Evaluate & Treat Comment: Cerebellar stroke Physician Instructions: Evaluate and treat Discharge provider: Reema Ren DO Summary Hospital Course Discharge Diagnosis: 1. Acute left posterior lateral medulla CVA, present on admission. Active. 2. Hypertension, chronic, present on admission. Stable. 3. Diabetes mellitus type 2, insulin-using, uncontrolled with neuropathy, present on admission, active. 4. Hypothyroidism, chronic, present on admission. Stable. Hospital Course: Harpreet Panda is a 64-year-old right-handed male with a past medical history significant for untreated hypertension, poorly controlled diabetes mellitus type 2, insulin using, with complication of neuropathy and hypothyroidism who was transferred and directly admitted from [facility] for further evaluation of possible CVA with MRI capability. 1. Acute left posterior lateral medulla CVA, present on admission. Active. -Patient with abrupt onset of headache with ataxia at 7:30 p.m on the night of admission. Patient had associated symptoms of numbness and tingling to the left face left arm and left leg, ataxia with impaired movement left hand and nausea and vomiting. Headache has resolved and no complaints of neck pain. -Initial NIH score at [facility] was 0. Upon arrival to [facility] NIH score was 5. [facility] was consulted on arrival Dr. Parker of neurology determined patient not to be an interventional candidate and recommended proceeding with standard workup as previously described. -CT brain did not demonstarte any acute intracranial abnormalities. -CTA demonstrated abrupt termination of the left PICA. -MRI stroke protocol demonstrated a focal subacute infarction involving the left posterolateral medulla. Also noted hypoplastic R A1 segment considered an normal anatomical variant. Symptoms consistent with Wallenberg syndrome. -Ordered ondansetron 4 mg every 6 hours as needed without relief of nausea. Ordered prochlorpromazine 10 mg IV every 6 hours as needed for nausea, along with zofran and reglan. -Allowed for permissive hypertension x 24 hours. Started lisinopril as below for better BP control as below. -Continued to monitor closely on telemetry. Patient remained in sinus rhythm with frequent PVCs throughout hospitalization. -Risk stratified with hemoglobin A1C elevated at 9.7% and lipid panel which demonstrated: Total cholesterol 175, triglycerides 92, LDL of 117 (goal < 70), HDL 40. -Echocardiogram demonstrated normal EF 60-65%, normal diastolic parameters, normal RV size and function, severely dilated left atrium, mildly dilated right atrium, extracardiac son such as pulmonary AV malformation, discrete nodular thickening of right coronary cusp, [id number] aortic regurgitation, no other significant valvular heart disease, aortic root mildly dilated and ascending aorta mild moderately enlarged. -Continued aspirin 81 mg daily and atorvastatin 40 mg daily at bedtime for stroke prophylaxis. Discussed stroke prophylaxis with [facility] as patient has potential extracardiac shunt and severely dilated left atrium without evidence of atrial fibrillation. [facility] recommended continued cardiac monitoring and if no evidence of atrial fibrillation would recommend event monitor such as ZIO patch to assure patient does not have underlying atrial fibrillation. -Recommend outpatient sleep study per PCP to assess for sleep apnea as patient has severely dilated left atrium. -Continued physical and occupational therapy and evaluation. Cleared by speech therapy. 2. Hypertension, chronic, present on admission. Stable. -Patient has a history of hypertension but not currently medically treated. -Patient was hypertensive and received labetalol 20 mg IV at [facility]. Blood pressure on arrival to [facility] was 176/88 and allowed for permissive hypertension x 24 hours given his acute CVA. -Started and continued lisinopril increased from 20 to 40 mg daily on 05/05 for better blood pressure control as SBP consistently 140-160 mmHg. May need additional anti-hypertensive if BP continues to be elevated. -Continued to monitor BP closely. 3. Diabetes mellitus type 2, insulin-using, uncontrolled with neuropathy, present on admission, active. -Hemoglobin A1c 9.7% indicative of poor glycemic control. Patient admits not checking blood sugars regularly and reports complication of bilateral lower extremity neuropathy. -Continued [facility] blood glucose checks and low dose correctional scale insulin. -Patient home regimen is Basaglar 62 units daily and Januvia 1 tab twice daily. Continued Lantus 40 units twice daily. Blood glucose is improved in 100-200 range . -Continued heart healthy/carbohydrate consistent diet. 4. Hypothyroidism, chronic, present on admission. Stable. -TSH normal at 1.20. -Continued home levothyroxine 75 mcg daily. Exam Vital Signs (past 8 hours): - 05/06/19 02:59 05/06/19 03:00 05/06/19 08:00 Temperature 97.7 F 97.5 F L Pulse Rate 63 61 Respiratory Rate 18 18 Blood Pressure 152/74 H 159/83 H Pulse Oximetry 94 94 95 Oxygen Delivery Method Room Air Oxygen Flow Rate 0 Narrative Exam Narrative: General: Middle aged male sitting at edge of bed and in no acute distress, well-developed, well-nourished, appropriately interactive. HEENT: Normocephalic, atraumatic. External ears without defect. Pupils equal, round, and reactive to light. Anicteric sclerae, moist conjunctivae, and no lid lag. Oropharynx free of erythema and cobble stoning with moist mucosa. Neck: Supple with full range of motion. No jugular venous distension. No bruits. No lymphadenopathy or thyromegaly. Cardiovascular: Regular rate and rhythm without murmurs, rubs, or gallops appreciated. Pulmonary: Clear to auscultation bilaterally without crackles, wheezes, or rhonchi. Normal respiratory effort with no use of accessory muscles. Abdomen: Soft, bowel sounds present, nontender, nondistended. No hepatosplenomegaly or masses appreciated. Extremities: No clubbing, cyanosis, or edema. Skin: Normal temperature, turgor, and texture; no rash, ulcers, or subcutaneous nodules appreciated. Neurological: Cranial nerves grossly intact. Left-sided ataxia and discoordination with finger-nose and [id number]. Patient frequently leans to left side and has subtle weakness of left upper and lower extremity MS +4/5. Psychiatric: Normal mood and affect. Alert and oriented to person, place, and time. Objective Labs Result Diagrams: 05/06/19 06:05 05/06/19 06:05 Labs: Laboratory Results - last 24 hr 05/06/19 05/06/19 06:05 06:05 WBC 10.4 RBC 5.86 Hgb 17.6 H Hct 49.5 MCV 84.4 MCH 30.0 MCHC 35.6 RDW 14.0 Plt Count 261 Neut % (Auto) 60.7 Lymph % (Auto) 24.7 L Traill % (Auto) 9.8 Eos % (Auto) 4.1 H Baso % (Auto) 0.7 Neut # (Auto) 6300 Lymph # (Auto) 2600 Traill # (Auto) 1000 H Eos # (Auto) 400 Baso # (Auto) 100 Sodium 135 L Potassium 3.8 Chloride 103 Carbon Dioxide 25 BUN 15 Creatinine 0.88 Estimated GFR > 60.0 BUN/Creatinine Ratio 17.0 Glucose 113 H Calcium 9.1 Discharge Plan Discharge Plan Patient Disposition: [facility] Other facility: [facility] Discharge comment: PICA CVA Discharge orders & Medications Follow up/Referrals: Ramesh Danielson MD [Primary Care Provider] - Diet/Activity/Treatments Diet: Carb-consistent/Diabetic, Low-fat, Low-sodium and Low-cholesterol Diet comment: Mechanical soft Activity: Activity as tolerated with forward wheeled walker physical and occupational therapy Discharge Data Primary Care Provider: Ramesh Danielson Quality VTE Deep Vein Thrombosis/Pulmonary Embolism Present on Admission: No
--- NOTE | 2019-05-06 08:43 | CM.DPC ---
Addendum entered by Danii Lucia LPN 05/06/19 12:57: DC summary has been reviewed by [facility] buffer automatic Dr. Abby Cheung and she now has questions re the outcome and recommendations that Dr. Ren received today from [place] neurologist. A doc/doc conversation is recommended: Dr. Ren is updated and given her contact numbers. Dr. Ren has now confirmed that she spoke with Dr. Cheung and a plan for outpt cardiac followup after inpt rehab is recommended. Addendum entered by Danii Lucia LPN 05/06/19 11:03: Spoke now with pt. His daughter will be here early to bring clothes that will be taken up to pt's room by staff. She will plan to take pt at 1345 so that he arrives after 1400, at request now of [facility]. Addendum entered by Danii Lucia LPN 05/06/19 10:25: Have final d/c orders now and will fax to Layla/MANISHA. DC summary in draft will be faxed. Will send final dc summary again once it is finalized. Original Note: DCP: continued: Case received, EMR reviewed and spoke with Dr. Ren who stated pt was ready for d/c to Inpt rehab when insurance auth was received. Spoke then with Layla/admissions officer: [facility] Acute Rehab unit. She stated she did receive the authorization from [facility] at the end of the day yesterday and that they were ready to accept pt today. Layla requested more information re some specifics of pt and his current care needs: gave this verbally to her over the phone. Dr. Ren was updated re this and with need for a d/c summary to go with pt at d/c. Spoke then with CONRAD Osborne with update and met then with pt. Pt says he is pleased re the acceptance. He is currently calling his adult children, most of whom are still working, to arrange transport to the facility via private vehicle. Goal is [address] Ren was then updated. She states her final orders will not be in for awhile as she is consulting with [place] neurology for further discussion on pt's care and medication needs. She is aware that plan is for 1300 today. DC summary is in draft at this point. Will be following.
[2019-05-06] MEDS: INSULIN GLARGINE 100 UNIT/ML 3ML PEN 40 UNIT SUBCUT (09:40)
[2019-05-06] MEDS: ENOXAPARIN 40 MG/0.4 ML SYRINGE SUBCUT (09:40)
[2019-05-06] MEDS: ASPIRIN EC 81 MG TABLET PO (09:40)
[2019-05-06] MEDS: lisinopriL 20 MG TABLET 40 MG PO (09:41)
[2019-05-06] MEDS: SODIUM CHLORIDE 0.9% FLUSH 10 ML IV (09:41)
[2019-05-06] MEDS: PANTOPRAZOLE 40 MG VIAL IV (09:41)
[2019-05-06 12:10] VITALS: BP 161/84; PULSE 69; RESP 17; TEMP 36.7; O2SAT 97
--- NOTE | 2019-05-06 12:42 | OT.IP.TRT ---
Current Diagnoses Cerebral infarction due to unspecified occlusion or stenosis of left cerebellar artery (05/02/19) Occupational Therapy Treatment Note M2 OT-IP Current Condition Start: 05/03/19 12:49 Freq: Status: Active Protocol: Document 05/05/19 09:47 [facility] (Rec: 05/05/19 10:22 [facility] [id number]) Occupational Therapy Current Condition Current Condition Evaluation Date 05/05/19 Treatment Diagnosis Cerebellar CVA Diagnosis Onset Date 05/02/19 Weight Bearing Status Weight Bearing Status Weight Bear as Tolerated M3 OT- IP Subjective and Pain Start: 05/03/19 12:49 Freq: Status: Active Protocol: Document 05/06/19 12:17 [facility] (Rec: 05/06/19 12:41 [facility] [id number]) OT- Subjective Occupational Therapy Visit Type Type Treatment Note Visit Start Time 11:15 Visit Stop Time 11:48 Total Visit Minutes 33 Occupational Therapy Visit Comments Patient Comments Pt agreeable to get up from OT treatment. Able to talk about what to expect at acute rehab and pt able to call his daughter to bring him his clothing and grooming needs. Patient/Caregiver Goals To go to acute rehab. OT Pain Assessment Pain When Pain Assessed At Rest Pain Present Pain Present Denied Pain M4 OT- IP ADL's Start: 05/03/19 12:49 Freq: Status: Active Protocol: Document 05/06/19 12:17 [facility] (Rec: 05/06/19 12:41 [facility] [id number]) OT ADL-Dressing General Eval Lower Body Dressing Ability Standby Assistance Comments OT Dressing Comments Today increased sitting balance while bending over to arnaldo/tie his shoes. Pt still relying on use of right hand more. OT ADL-Toileting Comments OT Toileting Comments Pt not having to go. OT ADL-Bathing Comments OT Bathing Comments Pt already showered this morning with the nursing aid. Pt states able to shower seated on his own needed assist to get into and out of the shower. M5 OT- IP IADL's Start: 05/03/19 12:49 Freq: Status: Active Protocol: Document 05/05/19 09:47 [facility] (Rec: 05/05/19 10:22 [facility] [id number]) OT-Instrumental Activities of Daily Living Home Safety Awareness Awareness of Need for Assistance at Home Good Awareness Ability to Problem Solve Emergency Able to Problem Solve Situations Medication Management Medication Management No Deficits Identified Money Management Money Management No Deficits Identified Meal Preparation Meal Preparation Comments At this time pt would require assist due to decreased static and dynamica balance. 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 Driving Driving Comments See comments below. From a cognitive standpoint appears intact, however from a physical aspect due to his decreased static and dynamic balance and coordination, may not be appropriate to drive yet. M6 OT- IP Functional Cognition Start: 05/03/19 12:49 Freq: Status: Active Protocol: Document 05/05/19 09:47 [facility] (Rec: 05/05/19 10:22 [facility] [id number]) Cognitive Factors Limiting Selfcare Function Cognitive Ability Level of Alertness Alert Patient Orientation Name,Age,Birthday,Month,Date, Year,Day of Week,Place, Situation Attention Span Ability Capable of Focused Attention, Capable of Sustained Attention Ability to Follow Commands Able to Follow Multi-Step Commands Memory Description No Deficits Noted Problem Solving Ability No deficits Noted Executive Function Ability No Deficits Noted Cognitive Comments Cognitive Assessment Comments Pt appears to be at baseline with cognition and due not appear to have any deficits. Pt scored 51 seconds on [employer] Making B which implies normal for mental flexibility, visual attention, execution thinking , and speed of processing. OT- Vision and Hearing OT- Hearing Assessment OT- Hearing Assessment WFL OT- Vision Assessment Visual Acuity Glasses All The Time Occular Pursuits WFL Visual Convergence WFL Visual Gonzalez WFL Vision Assessment Comments Pt states prior was seeing double, however not at this time. M7 OT- IP Mobility and Balance Start: 05/03/19 12:49 Freq: Status: Active Protocol: Document 05/06/19 12:17 [facility] (Rec: 05/06/19 12:41 [facility] [id number]) OT- Bed Mobility Assessment Rolling Level of Assistance Standby Assistance Supine to Sit Supine to Sit Assist Standby Assistance Sit to Supine Sit to Supine Assist Standby Assistance Scooting Scooting to Edge of Bed Standby Assistance OT-Transfer Assessment Sit to and From Stand Sit to and from Stand Standby Assistance Transfers Transfer Ability Contact Guard Assistance, Moderate Assistance Technique Transfer Destination Bed,Chair Transfer Technique Stand Step Pivot Devices Transfer Assistive Devices Gait Belt,Front Wheeled Walker Comments Mobility Comments Pt still needing CGA with FWW as a little unsteady on his feet especially when he looks down. Pt needing MODA for transfer without use of FWW as very unsteady especially when lifting up right foot to turn during transfer. OT- Balance Assessment Sitting Balance and Reactions Static Sitting Balance Ability Fair Dynamic Sitting Balance Ability Fair Comments Other Balance Tests/Deviations/Treatment Fair + sitting balance : statically and fair- for dynamic balance. M8 OT- IP Objective Assessments Start: 05/03/19 12:49 Freq: Status: Active Protocol: Document 05/06/19 12:17 [facility] (Rec: 05/06/19 12:41 [facility] [id number]) OT- Coordination Assessment Comments Coordination Comments Today 9 hole peg score for left hand improved from 80 down to 67 seconds. Pt states prior wears gloves at work due to hands are slippery and does not have much traction with with fingertips. M9 OT- IP Assessment and Plan Start: 05/03/19 12:49 Freq: Status: Active Protocol: Document 05/05/19 09:47 [facility] (Rec: 05/05/19 10:22 [facility] [id number]) OT Summary Assessment and Plan Potential Rehabilitation Potential Excellent Analytic Complexity at Evaluation Low Summary OT Impairments Strength,Balance,Coordination, Functional Mobility,Dressing, Toileting,Bathing,Toilet Transfers,Shower Transfers, Activity Tolerance Progress Towards Goals Progressing Toward Goals Assessment Summary Pt main barrier are decreased balance, coordination, and ability to coordinate UE movement with LE movements. Pt very motivated, pleasant and willing to participate in therapy. Pt has great potential as mainly having decreased balance and coordination needs and appears intact for cognition. 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 Goals Self-Feeding Goal Independent Grooming Goal Independent Dressing Goal Independent Toilet Transfer Goal Independent Shower Transfer Goal Independent Patient/Caregiver Education Goal Caregiver Independent Assisting Patient Frequency of Treatment Frequency Of Treatment Once a Day Treatment Plan OT Treatment Plan ADL Training,Functional Mobility,Patient/Family Education,Discharge Planning Discharge Recommendations OT Discharge Recommendations Acute Rehab Home Equipment Needs Defer to skilled rehab Transportation Needs at Discharge Private car
[2019-05-06] MEDS: INSULIN ASPART 100 UNIT/ML INSULN PEN SUBCUT (12:57)
--- NOTE | 2019-05-06 14:26 | CM.DPC ---
DCP cont: Faxed updated discharge summary to [facility] at fax # [phone]. Fax confirmations scanned in. Kimberly Sal, Rain Flow Manager
== END 2019-05-06 14:00 | DRG 66 ==
PROVIDERS: Internal Medicine; Admitting Provider Nurse Practitioner Adult Health; Family Provider Family Medicine; PCP Family Medicine; Referring Provider Nurse Practitioner Adult Health; Visit Provider Nurse Practitioner Adult Health
DX: I63.542 Cerebral infarction due to unspecified occlusion or stenosis of left cerebellar artery (principal); R27.0 Ataxia, unspecified; E11.40 Type 2 diabetes mellitus with diabetic neuropathy, unspecified; E11.621 Type 2 diabetes mellitus with foot ulcer; L97.519 Non-pressure chronic ulcer of other part of right foot with unspecified severity; E11.65 Type 2 diabetes mellitus with hyperglycemia; I10 Essential (primary) hypertension; E03.9 Hypothyroidism, unspecified; Z79.4 Long term (current) use of insulin
CPT/HCPCS: 36415; 70548; 70553; 80048; 80053; 80061; 82962; 83036; 83735; 84443; 85025; 92610; 93005; 93306; 97110; 97112; 97116; 97162; 97165; 97530; 97535; A9579; C9113; G0379; J0780; J1650; J2405; J2765

== ENCOUNTER → 2020-05-28 08:54 | Outpatient (CLI) | payer MEDICARE, OTHER, SELFPAY ==
--- NOTE | 2020-05-28 | DI.RAD.S_ITS ---
PROCEDURE: XR FOOT RT MIN 3V INDICATIONS: Non-pressure chronic ulcer of other part of right TECHNIQUE: 3 views of the foot were acquired. COMPARISON: [facility], , FOOT 3V RIGHT, 02/16/2016, 11:57. FINDINGS: Bones: No acute fracture. Alignment: There is normal/expected osseous alignment. Other: Postsurgical changes related to resection of the great toe at the level of the distal 1st metatarsal. Diffuse interphalangeal and MTP joint degeneration. There is chronic possible posttraumatic callus formation involving the 2nd metatarsal. Flattened appearance of the 2nd 3rd and 4th metatarsal heads. Scattered degenerative subchondral sclerosis and spurring. No focal osseous destruction. Amputation of the 2nd toe at the level of the PIP joint. IMPRESSION: No focal osseous destruction to suggest advanced osteomyelitis. If there is persistent clinical concern, continued short interval radiographic followup or contrast enhanced MRI could be performed to assess for early infection. Dictated by: Yoandy Lo M.D. on 05/28/2020 at 10:42 Approved by: Yoandy Lo M.D. on 05/28/2020 at 10:44
== END ==
PROVIDERS: Family Provider Family Medicine; PCP Family Medicine; Referring Provider Family Medicine; Visit Provider Family Medicine
DX: L97.519 Non-pressure chronic ulcer of other part of right foot with unspecified severity (principal); Z89.411 Acquired absence of right great toe
CPT/HCPCS: 73630